=== PATIENT | female | born 2000 | race Caucasian/White ===

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

== ENCOUNTER 2024-04-10 05:28 | Observation (INO) ==
--- OUTSIDE RECORDS SUMMARY | 2024-04-10 05:35 | External Medical Summary | Summary of Care ---
Author Name Unknown Organization [facility] Address [address] [place] [address] Phone [phone] Care Team Providers Care Grazing Examiner Name Role Phone Cande Chavarria MD Primary Care Provider Reason for Visit * Reason Comments Post-Op Removal spinal cord stimulator Encounter Details Date Type Department Care Team (Late st Contact Info) Description 11/11/2023 1:30 PM EST [facility] [address] [place] [address] Estefania Steward, PASam [address] [place] [address] Complex regional pain syndrome type 1 of both lower extremities* Allergies Active Allergy Reactions Criticality Noted Date Comments Cefdinir Anaphylaxis High 02/03/2021 Latex 04/04/2021 Other reaction(s): red, skin irritation. documented as of this encounter (statuses as of 11/15/2023) Medications Medication Sig Dispensed Refills Start Date End Date Status Ibuprofen 200 MG Oral Capsule Take 3 Capsules by mouth 2 times a day as needed (pain). 0 Active diphenhydrAMINE HCl 25 MG Oral Capsule (Benadryl) Take 1 Capsule by mouth every 6 hours as needed. 0 Active Acetaminophen 500 MG Oral Tablet (Tylenol) Take 6 Tablets by mouth 2 times a day as needed (pain). 0 Active oxyCODONE HCl 5 MG Oral Tablet (Oxy IR) Take 1 Tablet by mouth every 4 hours as needed for Pain, Moderate. 45 Tablet 0 11/01/2023 Active Acetaminophen 325 MG Oral Capsule Take 325 mg by mouth every 4 hours as needed for Pain. 0 11/11/2023 Discontinued Naproxen Sodium 220 MG Oral Tablet (Aleve) Take 6 Tablets by mouth 2 times a day as needed for Pain. 0 11/11/2023 Discontinued Cyclobenzaprine HCl 10 MG Oral Tablet (Flexeril)Indicat ions:Chronic left-sided low back pain with left-sided sciatica Take 1 Tablet by mouth 2 times a day as needed for Muscle spasms. 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 documented as of this encounter (statuses as of 11/15/2023) Resolved Problems Problem Noted Date Diagnosed Date Resolved Date Uncontrolled pain 05/04/2021 12/15/2022 POTS (postural orthostatic t achycardia syndrome) 05/04/2021 07/01/2021 Severe malnutrition 02/18/2021 12/16/19 23 documented as of this encounter (statuses as of 11/15/2023) Immunizations Name Administration Dates Next Due HPV Vaccine, 4-Valent 2011 Hepatitis B, 0-19 yrs 2000 IPV - Polio Virus Vaccine (Inact) 2000 MMR - Measles/Mumps/Rubella Vaccine 2001 Meningococcal MCV4P Conjugate Vaccine (Menactra) 2001 Seasonal Influenza, PF, 6 M & above, IM , (FluLaval or Fluzone) 08/25/2021() Seasonal Influenza, Split, IIV3, With Preserve, Inj 04/06/2016 TDAP (age 10 and older)(Boostrix) 2007 Varicella Vaccine (Chicken Pox) 2013 documented as of this encounter Social History Tobacco Use Types Packs/Day Years Used Date Smoking Tobacco: Never Smokeless Tobacco: Never Alcohol Use Standard Drinks/Week Comments Yes 0 (1 standard drink = 0.6 oz pur e alcohol) rare Hunger Vital Sign Answer Date Recorded Within the past 12 months, y ou worried that your food would run out before you got the money to buy more. Never true 02/04/20 23 Within the past 12 months, t he food you bought just didn't last and you didn't have money to get more. Never true 02/03/2023 Sex and Gender Information Value Date Recorded Sex Assigned at Female 05/04/2021 11:30 PM EDT Gender Identity Female 05/04/2021 11:30 PM EDT Sexual Orientation Straight 05/04/2021 11 :30 PM EDT Job Start Date Occupation Industry Not on file Not on file Not on file documented as of this encounter Functional Status Functional Status Response Date of Assess ment Are you deaf or do you have serious difficulty h earing? No 05/04/2021 Are you blind or do you have serious difficulty seeing, even when wearing glasses? No 05/04/2021 Do you have serious difficul ty walking or climbing stairs? (5 years old or older) No 05/04/2021 Do you have difficulty dress ing or bathing? (5 years old or older) No 05/04/2021 Because of a physical, menta l, or emotional condition, do you have difficulty doing errands alone such as visiting a doctor s office or shopping? (15 years old or older) No 05/04/20 21 Cognitive Status Response Date of Assessm ent Because of a physical, menta l, or emotional condition, do you have serious difficulty concentrating, remembering, or making decisions? (5 years old or older) No 05/04/2021 documented as of this encounter Progress Notes * Estefania Steward PA-C - 11/15/2023 7:11 PM EDT 11-11-2023 HPI: 23 yo female s/p removal of her spinal cord stimulator. Overall she is doing well. She denies fever, chills, or drainage from her wound. She is doing well without the stimulator. She is here today for follow up. Exam: 23 yo female well developed, well nourished. Back and Spine: well healed incisions. Negative pain with palpation, negative erythema or drainage. Extremities: p.pulse +2 in the bilateral lower extremities. Full and painless ROM of the hips, knees, and ankles bilaterally. Neurologically: alert and oriented. Motor strength +5 in the bilateral lower extremities. Assessment: Chronic pain syndrome s/p removal spinal cord stimulator 10-15-23 Plan Activities as tolerated Follow up prn documented in this encounter Plan of Treatment Health Maintenance Due Date Last Done Comments Hepatitis B (2 of 3 - 3-dose series) 2000 2000 GARDASIL-HPV IMMUNIZATION SE MISTY (2 - 2-dose series) 04/17/2012 2011 Gonorrhea / Chlamydia Screen 2015 HIV Screening 2015 Depression Screening 11/15/2015 11/14/2014 Hepatitis C Screening 2018 DTaP,Tdap,and Td Vaccines (2 - Tdap) 2019 2007 Pap Smear 2021 COVID-19 Vaccine (1 - 2022-2 4 season) 2023 Influenza Vaccine (FLU shot) (#1) 2023 016 MENINGOCOCCAL (MENACTRA/MENVEO) Aged Out 2 No longer eligible based on patient's age to complete this topic Pneumococcal Vaccine: Pediat rics (0 to 5 Years) and At-Risk Patients (6 to 64 Years) Aged Out No longer eligi ble based on patient's age to complete this topic documented as of this encounter Medical Devices Implanted Type Area Development Specialist Device Identifier Shelf Expiration Date Model / Serial / Lot Achilles W/O Bone [id number] - [id number] - [id number] Implanted:Qt y: 1 on 02/13/2021 by Tomy Simms DO at [place] [facility] Tissue - Human Right: Shoulder [employer]LET[employer]ANS[employer] FND 05/27/2022 [id number] / [id number] / [id number] [facility] [id number] X5 - [id number] Implanted:Qt y: 1 on 02/07/2015 by Emmett Earl MD at [facility] Left: Toe [employer] [id number] / / Fibre Suture Burt With 1.3mm Tape (White/Blue) Implanted:Qt y: 3 on 02/13/2021 by Tomy Simms, DO at [place] [facility] Right: Shoulder [employer] 01/03/2025 AR-3602 / / [id number] Sut Burt Peek Crkscrw Ft - [id number] Implanted:Qt y: 1 on 02/13/2021 by Tomy Simms DO at [place] [facility] Right: Shoulder [employer] 08/05/2025 AR-[id number] F-45 / / [id number] Burt Sut Swvlck 4.61i83bf - [id number] Implanted:Qt y: 1 on 02/13/2021 by Tomy Simms DO at [place] [facility] Right: Shoulder [employer] 11/03/2024 AR-[id number] C-2 / / [id number] Burt Sut Swvlck 4.59h04cy - [id number] Implanted:Qt y: 1 on 02/13/2021 by Tomy Simms DO at [place] [facility] Right: Shoulder [employer] 05/06/2024 AR-[id number] C-2 / / [id number] documented as of this encounter Visit Diagnoses Diagnosis Complex regional pain syndrome type 1 of both lower extremities- Primary documented in this encounter Advance Directives Latest Code Status on File Code Status Date Activated Date Inactivated Comments Full Code 10/15/2023 1:43 PM 10/15/2023 8:27 PM This or jennifer reflects the patients wishes and were consensually agreed upon. Question Answer Comments Discussion of Advance Directives occurred with: Not Discussed due to patient's condition Code Status History Code Status Date Activated Date Inactivated Comments Full Code 10/15/2023 12:27 PM 10/15/2023 1:43 PM This o rder reflects the patients wishes and were consensually agreed upon. Question Answer Comments Discussion of Advance Directives occurred with: Patient Does the patient have a Living Will? No Does the patient have Health Care Power of Hand Folder? No Full Code 08/25/2021 11:39 AM 08/25/2021 7:45 PM Th is order reflects the patients wishes and were consensually agreed upon. Question Answer Comments Discussion of Advance Directives occurred with: Patient Does the patient have a Living Will? No Does the patient have Health Care Power of Hand Folder? No Full Code 05/04/2021 7:05 PM 05/06/2021 6:38 PM This order reflects the patients wishes and were consensually agreed upon. Full Code 02/13/2021 4:13 PM 02/18/2021 7:49 PM This order reflects the patients wishes and were consensually agreed upon. Question Answer Comments Discussion of Advance Directives occurred with: Not Discussed Care Teams Grazing Examiner Relationship Specialty Start Date End Date Cande Chavarria MD [address] [place] [id number] PCP - General Internal Medicine 07/10/21 documented as of this encounter
--- OUTSIDE RECORDS SUMMARY | 2024-04-10 05:35 | External Medical Summary | Summary of Care ---
Author Name Unknown Organization [facility] Address [address] [place] [address] Phone [phone] Care Team Providers Care Implementation Project Coordinator Name Role Phone Cande Chavarria MD Primary Care Provider Reason for Visit * Reason Comments Migraine Headache Encounter Details Date Type Department Care Team (Late st Contact Info) Description 04/01/2024 8:40 AM EDT Telemedicine [address] [address] Martin Matias, DO [address] [place] [address] Spasm of left trapezius muscle*; Cervical paraspinal muscle spasm; Migraine without aura and without status migrainosus, not intractable; DAY (generalized anxiety disorder); History of bipolar disorder; Thoracic spondylosis Allergies Active Allergy Reactions Criticality Noted Date Comments Cefdinir Anaphylaxis High 02/03/2021 Latex 04/04/2021 Other reaction(s): red, skin irritation. documented as of this encounter (statuses as of 04/01/2024) Medications Medication Sig Dispensed Refills Start Date End Date Status Ibuprofen 200 MG Oral Capsule Take 3 Capsules by mouth 2 times a day as needed (pain). Active diphenhydrAMINE HCl 25 MG Oral Capsule (Benadryl) Take 1 Capsule by mouth every 6 hours as needed. Active Acetaminophen 500 MG Oral Tablet (Tylenol) Take 6 Tablets by mouth 2 times a day as needed (pain). Active Cyclobenzaprine HCl 10 MG Oral Tablet (Flexeril)Indicat ions:Spasm of left trapezius muscle Take 1 Tablet by mouth 2 times a day as needed for Muscle spasms. 30 Tablet 04/01/2024 Active oxyCODONE HCl 5 MG Oral Tablet (Oxy IR) Take 1 Tablet by mouth every 4 hours as needed for Pain, Moderate. 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 documented as of this encounter (statuses as of 04/01/2024) Resolved Problems Problem Noted Date Diagnosed Date Resolved Date Bipolar 1 disorder 01/14/2022 Uncontrolled pain 05/04/2021 12/15/2022 POTS (postural orthostatic t achycardia syndrome) 05/04/2021 07/01/2021 Severe malnutrition 02/18/2021 12/16/19 23 documented as of this encounter (statuses as of 04/01/2024) Immunizations Name Administration Dates Next Due HPV [...] as of this encounter Progress Notes * Martin Matias, DO - 04/01/2024 8:54 AM EDT SUBJECTIVE: Chief Complaint Patient presents with Migraine Headache HPI: Manda Pepper is a 23 year old female who presents to the clinic for evaluation of muscle spasms, migraine and other comorbidities. Patient location: HOME. I was in a hospital or clinic location. After connecting through televideo,patient was verified with two unique identifiers. 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 Methods to assure confidentiality were taken. Patient acknowledged consent and understanding of pr ivacy and security of the Telemedicine visit. The patient agreed to participate. She is employed with the [employer]. She is physically active with work. Three days ago, she developed a left paracervical to trapezius muscle spasms. No known injury. It is causing left sided migraine headaches. The migraine headaches are typically associated with vision changes. No radiating pain down the left arm. No motor or sensory deficits in the extremities. She received Toradol IM 30 mg this morning at work. She took ibuprofen and Tylenol. These are providing mild benefit. She did well with a muscle relaxer in the past. No chance of . No worsening thoracic back pain. Some days are better than others. Ibuprofen as needed is helping. No changes in mood. No worsening anxiety or bipolar disorder symptoms. She is not following with behavioral health or taking a medication for symptoms. 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) CRPS (complex regional pain syndrome type I) Shoulder dislocation Spinal cord stimulator dysfunction ([facility]) DAY (generalized anxiety disorder) Horseshoe kidney Thoracic spondylosis History of bipolar disorder Current Outpatient Medications Medication Sig Dispense Refill Cyclobenzaprine HCl 10 MG Oral Tablet (Flexeril) Take 1 Tablet by mouth 2 times a day as needed forMuscle spasms. 30 Tablet 0 Ibuprofen 200 MG Oral Capsule Take 3 Capsules by mouth 2 times a day as needed (pain). diphenhydrAMINE HCl 25 MG Oral Capsule (Benadryl) Take 1 Capsule by mouth every 6 hours as needed. Acetaminophen 500 MG Oral Tablet (Tylenol) Take 6 Tablets by mouth 2 times a day as needed (pain). No current facility-administered medications for this visit. Review of patient's allergies indicates: Allergen Reactions Cefdinir Anaphylaxis Latex Other reaction(s): red, skin irritation. Review of Systems: General: No fevers or malaise. Skin: No rash. HEENT: Vision changes with migraines. Neck: No lymph node enlargement. Cardiovascular: No chest pressure, chest pain or shortness of breath on exertion. Gastrointestinal: No abdominal pain. Musculoskeletal: Per HPI. Neurologic: Per HPI. OBJECTIVE: Telemedicine visit. PHYSICAL EXAM: General: Alert, no distress. Eyes: No conjunctivitis, drainage or excessive tearing. Nose: No epistaxis or rhinorrhea. Lungs: No audible cough or wheezing. Abdomen: Soft, non tender and active bowel sounds. Musculoskeletal: She is able to located the muscle spasms in the left trapezius to paracervical musculature. Neuro: Alert, oriented, fluent speech. No gross motor deficits in the left upper extremity. Psych: Normal mood and affect. ASSESSMENT/PLAN: Spasm of left trapezius muscle (Primary) Cervical paraspinal muscle spasm Plan: She is having symptoms. I reviewed her renal function and CBC. I sent as needed Flexeril to her pharmacy. We discussed the side effects. May use ibuprofen 600 mg every 12 hours as needed for pain. May take Tylenol 500 mg 1-2 tablets every 8 hours as needed for pain. Heating pad, topical lidocaine or Thermacare patches as needed for additional symptom relief. Take ibuprofen with food. Stay well hydrated during the day. Migraine without aura and without status migrainosus, not intractable Plan: She is having symptoms. This may be triggered by the left cervical and trapezius muscle spasms. Ibuprofen, Tylenol and Flexeril as above. - Cyclobenzaprine HCl 10 MG Oral Tablet (Flexeril); Take 1 Tablet by mouth 2 times a day as needed for Muscle spasms. DAY (generalized anxiety disorder) History of bipolar disorder Plan: No worsening symptoms. She would like to monitor clinically. Call if needed. Thoracic spondylosis Plan: No worsening symptoms. I reviewed her thoracic spine x-ray. May use as needed ibuprofen and Tylenol. Home PT exercises. Health maintenance Vaccinations, cervical cancer screening, hep C, HIV and Chlamydia screenings: She would like to discuss with her PCP. Follow up with PCP in 3 months. 20 min visit. Seen earlier if needed. Martin Matias DO 04/01/2024 9:00 AM documented in this encounter Nursing Notes * Lila Leger LPN - 04/01/2024 8:40 AM EDT Pt c/o on going migraines and neck pain and muscle spasms documented in this encounter Plan of Treatment Health Maintenance Due Date Last Done Comments Hepatitis B Vaccine (2 of 3 - 3-dose series) 2000 2000 HPV (Gardasil) Vaccine (2 - 2-dose series) 04/17/2012 2011 Gonorrhea / Chlamydia Screen 2015 HIV Screening 2015 Hepatitis C Screening 2018 DTaP,Tdap,and Td Vaccines (2 - Tdap) 2019 2007 Pap Smear 2021 COVID-19 Vaccine (1 - 2022-2 4 season) 2023 Influenza Vaccine (FLU shot) (#1) 2024 016 MENINGOCOCCAL (MENACTRA/MENVEO) Aged Out 2 No longer eligible based on patient's age to complete this topic Pneumococcal Vaccine: Pediat rics (0 to 5 Years) and At-Risk Patients (6 to 64 Years) Aged Out No longer eligi ble based on patient's age to complete this topic documented as of this encounter Medical Devices Implanted Type Area Surface Supervisor Device Identifier Shelf Expiration Date Model / Serial / Lot Achilles W/O Bone [id number] - [id number] - [id number] Implanted:Qt y: 1 on 02/13/2021 [place] T[place] Sim[place] [facility] [place] Human Right: Shoulder MUSCULOSKELETAL TRANSPLANT FND 05/27/2022 [id number] / [id number] / [id number] [place] Crkscrw Ar-1927bf X5 - [id number] Implanted:Qt y: 1 on 02/07/2015 by Emmett Earl MD at OR [facility] Left: Toe [employer] AR-1927BF / / Fibre Suture [place] With 1.3mm Tape (White/Blue) Implanted:Qt y: 3 on 02/13/2021 by Tomy Simms [place] [facility] [place]: Shoulder [employer] 01/03/2025 AR-3602 / / [id number] Sut [place] Peek Crkscrw Ft - [id number] Implanted:Qt y: 1 on 02/13/2021 by Tomy Simms [place] [facility] [place]: Shoulder [employer] 08/05/2025 AR-1927PS F-45 / / [id number] [place] Sut Swvlck 4.52f76bx - [id number] Implanted:Qt y: 1 on 02/13/2021 by Tomy Simms, [place] [facility] [place]: Shoulder [employer] 11/03/2024 AR-2324BC C-2 / / [id number] [place] Sut Swvlck 4.99g65fr - [id number] Implanted:Qt y: 1 on 02/13/2021 by Tomy Simms, DO [place] [facility] [place]: Shoulder [employer] 05/06/2024 AR-2324BC C-2 / / [id number] documented as of this encounter Visit Diagnoses Diagnosis Spasm of left trapezius muscle- Primary Cervical paraspinal muscle spasm Spasm of muscle Migraine without aura and without status migrainosus, not intractable Migraine without aura, without mention of intractable migraine without mention of status migrainosus DAY (generalized anxiety disorder) Generalized anxiety disorder History of bipolar disorder Personal history of affective disorder Thoracic spondylosis Thoracic spondylosis without myelopathy documented in this encounter Advance Directives * Full Code (Latest Code Status on File) Date Activated Date Inactivated Comments 10/15/2023 1:43 PM 10/15/2023 8:27 PM This order ref lects the patients wishes and were consensually agreed upon. Question Answer Comments Discussion of Advance Direct dickson occurred with: Not Discussed due to patient's condition * Full Code Date Activated Date Inactivated Comments 10/15/2023 12:27 PM 10/15/2023 1:43 PM This order re flects the patients wishes and were consensually agreed upon. Question Answer Comments Discussion of Advance Directives occurred with: Patient Does the patient have a Living Will? No Does the patient have Health Care Power of Attor roxana? No * Full Code Date Activated Date Inactivated Comments 08/25/2021 11:39 AM 08/25/2021 7:45 PM This orde r reflects the patients wishes and were consensually agreed upon. Question Answer Comments Discussion of Advance Directives occurred with: Patient Does the patient have a Living Will? No Does the patient have Health Care Power of Attor roxana? No * Full Code Date Activated Date Inactivated Comments 05/04/2021 7:05 PM 05/06/2021 6:38 PM This order r eflects the patients wishes and were consensually agreed upon. * Full Code Date Activated Date Inactivated Comments 02/13/2021 4:13 PM 02/18/2021 7:49 PM This order r eflects the patients wishes and were consensually agreed upon. Question Answer Comments Discussion of Advance Directives occurred with: Not Discussed Care Teams Implementation Project Coordinator Relationship Specialty Start Date End Date Cande Chavarria MD [address] [place] [address] PCP - General Internal Medicine 07/10/21 documented as of this encounter
--- OUTSIDE RECORDS SUMMARY | 2024-04-10 05:35 | External Medical Summary | Summary of Care ---
Author Name Unknown Organization [facility] Address [address] [place] [address] Phone [phone] Care Team Providers Care Fried Cake Maker Name Role Phone Cande Chavarria MD Primary Care Provider Reason for Referral * Evaluate & Treat - Unlimited Visits (Within 30 days (routine)) - Pending Review Specialty Diagnoses / Procedures Referred By Maximino lowe Referred To Contact Neuro/Ortho Surgery - Spine. / Neurological Surgery Diagnoses Complex regional pain syndrome type 1 of both lower extremities Malfunction of spinal cord stimulator, subsequent encounter Cande Chavarria MD [address] [place] [address] Referral ID Status Reason Start Date Expiration Date Visits Requested Visits Authorized [id number] Pending Review Specialty Services Required 09/14/2023 09/14/[phone] Question Answer Referral Priority Within 30 days (routine) Where should this appointment be scheduled? [facility] spine region: Back - Thoracic/Lumbar Do you have any recent complete loss of bladder or bowel function? No Comments Implanted stimulator, suspect malfunction. Appt already scheduled Reason for Visit * Reason Onset Date Comments Referral 09/14/2023 Encounter Details Date Type Department Care Team (Late st Contact Info) Description 09/14/2023 Telephone Family Practice [facility] [address] [place] [address] Cande Chavarria MD [address] [place] [address] Referral Allergies Active Allergy Reactions Criticality Noted Date Comments Cefdinir Anaphylaxis High 02/03/2021 Latex 04/04/2021 Other reaction(s): red, skin irritation. documented as of this encounter (statuses as of 12/14/2023) Medications Medication Sig Dispensed Refills Start Date [...] a day as needed (pain). 0 Active Acetaminophen 325 MG Oral Capsule Take 325 mg by mouth every 4 hours as needed for Pain. 0 11/11/2023 Discontinued Naproxen Sodium 220 MG Oral Tablet (Aleve) Take 6 Tablets by mouth 2 times a day as needed for Pain. 0 11/11/2023 Discontinued documented as of this encounter (statuses as of 12/14/2023) Active Problems Problem Noted Date Diagnosed Date [...] as of this encounter (statuses as of 12/14/2023) Resolved Problems Problem Noted Date Diagnosed Date Resolved Date Uncontrolled pain 05/04/2021 12/15/2022 POTS (postural orthostatic t achycardia syndrome) 05/04/2021 07/01/2021 Severe malnutrition 02/18/2021 12/16/19 documented as of this encounter (statuses as of 12/14/2023) Immunizations Name Administration Dates Next Due HPV [...] No 05/04/2021 documented as of this encounter Miscellaneous Notes * Telephone Encounter - Maritza Martin LPN - 09/14/2023 11:01 AM EST Referral pend below f you agree * Telephone Encounter - Malini Rios OSA - 09/14/2023 8:33 AM EST Has the patient been seen for this problem? (Y/N)?: y If No, an appt needs to be scheduled before a referral will be placed (exception: proceed with referral request if referral request is for a yearly routine appointment with speciality) Patient Name: Manda Pepper Patient Primary care provider: Cande Chavarria MD Does this need to be an insurance referral (Y/N)?: y If Yes, does the insurance referral need to be placed into the [employer] system? N/A Name of preferred specialist: SARAH Payne Type of specialist: Orthopedics Location of specialist: [place] [facility] Phone #: [phone] Specialist's Fax #: [phone] Reason for visit: Thoracic back pain And Poss stem removal Date of visit: n/a documented in this encounter Plan of Treatment Scheduled Referrals Name Type Priority Associated Diagnoses Orde r Schedule SPINE SURGERY REFERRAL OP Referral Within 30 days (routine) Complex regional pain syndrome type 1 of both lower extremities Malfunction of spinal cord stimulator, subsequent encounter Ordered: 09/14/2023 Health Maintenance Due Date Last Done Comments Hepatitis B (2 of 3 - 3-dose series) 2000 2000 GARDASIL-HPV IMMUNIZATION SE MISTY (2 - 2-dose series) 04/17/2012 2011 Gonorrhea / Chlamydia Screen 2015 HIV Screening 2015 Depression Screening 11/15/2015 11/14/2014 Hepatitis C Screening 2018 DTaP,Tdap,and Td Vaccines (2 - Tdap) 2019 2007 Pap Smear 2021 COVID-19 Vaccine (2022-2 4 season) 2023 Influenza Vaccine (FLU shot) (Season Ended) 2024 04/06/2016 MENINGOCOCCAL (MENACTRA/MENVEO) Aged Out 2 No longer eligible based on patient's age to complete this topic Pneumococcal Vaccine: Pediat rics (0 to 5 Years) and At-Risk Patients (6 to 64 Years) Aged Out No longer eligi ble based on patient's age to complete this topic documented as of this encounter Medical Devices Implanted Type Area Ornamental Ironworker Helper Device Identifier Shelf Expiration Date Model / Serial / Lot Achilles W/O Bone [id number] - [id number] - [id number] Implanted:Qt y: 1 on 02/13/2021 by Tomy Simms DO at [place] [facility] [place] Tissue - Human Right: Shoulder MUSCULOSKELETAL TRANSPLANT FND 05/27/2022 [id number] / [id number] / [id number] [place] [address] Crkscrw Ar-1927bf X5 - [id number] Implanted:Qt y: 1 on 02/07/2015 by Emmett Earl MD at OR [facility] Left: Toe [employer] AR-1927BF / / Fibre Suture [place] With 1.3mm Tape (White/Blue) Implanted:Qt y: 3 on 02/13/2021 by Tomy Simms DO at [place] [facility] [place] Right: Shoulder [employer] 01/03/2025 AR-3602 / / [id number] Sut [place] Peek Crkscrw Ft - [id number] Implanted:Qt y: 1 on 02/13/2021 by Tomy Simms DO at [place] [facility] [place] Right: Shoulder [employer] 08/05/2025 AR-1927PS F-45 / / [id number] [place] Sut Swvlck 4.45d10zm - [id number] Implanted:Qt y: 1 on 02/13/2021 by Tomy Simms DO at OR [facility] [place] Right: Shoulder [employer] 11/03/2024 AR-2324BC C-2 / / [id number] [place] Sut Swvlck 4.93v16ur - [id number] Implanted:Qt y: 1 on 02/13/2021 by Tomy Simms DO at OR [facility] [place] Right: Shoulder [employer] 05/06/2024 AR-2324BC -2 / / [id number] Explanted Type Area Ornamental Ironworker Helper Device Identifier Shelf Expiration Date Model / Serial / Lot Implantable Pulse Generator Implanted:Qty: 1 on 08/25/2021 by Pritesh Correa MD at OR [facility] Explanted:Qty: 1 on 10/15/2023 at [place] [facility] [place] N/A: Back Roovyn : [employer]V [employer] 08/05/2023 VT-1232 / / [id number] Description:Implantable Puls e Generator documented as of this encounter Visit Diagnoses Diagnosis Complex regional pain syndrome type 1 of both lower extremities- Primary Malfunction of spinal cord stimulator, subsequent encounter documented in this encounter Advance Directives Latest [...] the patient have Health Care Power of Pharmacoepidemiologist? No Full Code 08/25/2021 11:39 AM 08/25/2021 7:45 PM Th is order reflects the patients wishes and were consensually agreed upon. Question Answer Comments Discussion of Advance Directives occurred with: Patient Does the patient have a Living Will? No Does the patient have Health Care Power of Pharmacoepidemiologist? No Full Code 05/04/2021 7:05 PM 05/06/2021 6:38 PM This order reflects the patients wishes and were consensually agreed upon. Full Code 02/13/2021 4:13 PM 02/18/2021 7:49 PM This order reflects the patients wishes and were consensually agreed upon. Question Answer Comments Discussion of Advance Directives occurred with: Not Discussed Care Teams Fried Cake Maker Relationship Specialty Start Date End Date Cande Chavarria MD [address] [place] [address] PCP - General Internal Medicine 07/10/21 documented as of this encounter
--- OUTSIDE RECORDS SUMMARY | 2024-04-10 05:35 | External Medical Summary | Summary of Care ---
Author Name Unknown Organization [facility] Address [address] [place] [address] Phone [phone] Care Team Providers Care Leather Belt Maker Name Role Phone Cande Chavarria MD Primary Care Provider Encounter Details Date Type Department Care Team (Late st Contact Info) Description 11/09/2023 Orders Only Outcomes Research Department [address], [place] [id number] Kaylin Tipton CHRA MyCode Research Other*[id number] Allergies Active Allergy Reactions Criticality Noted Date Comments Cefdinir Anaphylaxis High 02/03/2021 Latex 04/04/2021 Other reaction(s): red, skin irritation. documented as of this encounter (statuses as of 11/09/2023) Medications Medication Sig Dispensed Refills Start Date End Date Status Acetaminophen 325 MG Oral Capsule Take 325 mg by mouth every 4 hours as needed for Pain. 0 Active Ibuprofen 200 MG Oral Capsule Take 3 Capsules by mouth 2 times a day as needed (pain). 0 Active diphenhydrAMINE HCl 25 MG Oral Capsule (Benadryl) Take 1 Capsule by mouth every 6 hours as needed. 0 Active Naproxen Sodium 220 MG Oral Tablet (Aleve) Take 6 Tablets by mouth 2 times a day as needed for Pain. 0 Active Acetaminophen 500 MG Oral Tablet (Tylenol) Take 6 Tablets by mouth 2 times a day as needed (pain). 0 Active Cyclobenzaprine HCl 10 MG Oral Tablet (Flexeril)Indication s:Chronic left-sided low back pain with left-sided sciatica Take 1 Tablet by mouth 2 times a day as needed for Muscle spasms. 30 Tablet 0 10/15/2023 Active oxyCODONE HCl 5 MG Oral Tablet (Oxy IR) Take 1 Tablet by mouth every 4 hours as needed for Pain, Moderate. 45 Tablet 0 11/01/2023 Active documented as of this encounter (statuses as of 11/09/2023) Active Problems Problem Noted Date Diagnosed Date [...] as of this encounter (statuses as of 11/09/2023) Resolved Problems Problem Noted Date Diagnosed Date Resolved Date Uncontrolled pain 05/04/2021 12/15/2022 POTS (postural orthostatic t achycardia syndrome) 05/04/2021 07/01/2021 Severe malnutrition 02/18/2021 12/16/19 documented as of this encounter (statuses as of 11/09/2023) Immunizations Name Administration Dates Next Due HPV [...] No 05/04/2021 documented as of this encounter Plan of Treatment Upcoming Encounters Date Type Department Care Team (Late st Contact Info) Description 11/11/2023 1:30 PM EST [facility] [address] [place] [id number] Estefania Steward PA-C [address] [place] [address] Scheduled Orders Name Type Priority Associated Diagnoses Orde r Schedule MYCODE SUBSEQUENT ADULT Lab Routine MyCode Research Other*[id number] Every 6 Months for 2 Occurrences starting 11/09/2023 until 11/28/2024 Health Maintenance Due Date Last Done Comments [...] this encounter Medical Devices Implanted Type Area Zinc Plate Grainer Device Identifier Shelf Expiration Date Model / Serial / Lot Achilles W/O Bone [id number] - [id number] - [id number] Implanted:Qt y: 1 on 02/13/2021 by Tomy Simms DO [place] [facility] [place] - Human Right: Shoulder MUSCULOSKELETAL TRANSPLANT FND 05/27/2022 [id number] / [id number] / [id number] Crks[address] Ar-1927bf X5 - [id number] Implanted:Qt y: 1 on 02/07/2015 by Emmett Earl MD at [facility] Left: Toe [employer] AR-1927BF / / Fibre Suture Widen With 1.3mm Tape (White/Blue) Implanted:Qt y: 3 on 02/13/2021 by Tomy Simms DO [place] [facility] [place] Right: Shoulder [employer] 01/03/2025 AR-3602 / / [id number] Sut [place] Crkscrw Ft - [id number] Implanted:Qt y: 1 on 02/13/2021 by Tomy Simms DO at [place] [facility] [place] Right: Shoulder [employer] 08/05/2025 AR-1927PS F-45 / / [id number] Widen Sut Swvlck 4.74o46qf - [id number] Implanted:Qt y: 1 on 02/13/2021 by Tomy Simms, at [place] [facility] [place] Right: Shoulder [employer] 11/03/2024 AR-2324BC C-2 / / [id number] Widen Sut Swvlck 4.78u31od - [id number] Implanted:Qt y: 1 on 02/13/2021 by Tomy Simms DO at [place] [facility] [place] Right: Shoulder [employer] 05/06/2024 AR-2324BC C-2 / / [id number] documented as of this encounter Visit Diagnoses Diagnosis MyCode Research Other*[id number] documented in this encounter Advance Directives Latest [...] the patient have Health Care Power of Caddy? No Full Code 08/25/2021 11:39 AM 08/25/2021 7:45 PM Th is order reflects the patients wishes and were consensually agreed upon. Question Answer Comments Discussion of Advance Directives occurred with: Patient Does the patient have a Living Will? No Does the patient have Health Care Power of Caddy? No Full Code 05/04/2021 7:05 PM 05/06/2021 6:38 PM This order reflects the patients wishes and were consensually agreed upon. Full Code 02/13/2021 4:13 PM 02/18/2021 7:49 PM This order reflects the patients wishes and were consensually agreed upon. Question Answer Comments Discussion of Advance Directives occurred with: Not Discussed Care Teams Leather Belt Maker Relationship Specialty Start Date End Date Cande Chavarria MD [address] [id number] PCP - General Internal Medicine 07/10/21 documented as of this encounter
--- OUTSIDE RECORDS SUMMARY | 2024-04-10 05:35 | External Medical Summary | Summary of Care ---
Author Name Unknown Organization [facility] Address [address] [place] [address] Phone [phone] Care Team Providers Care Basting Puller Name Role Phone Cande Chavarria MD Primary Care Provider Reason for Visit * Reason Onset Date Comments Medication Problem 10/15/2023 Encounter Details Date Type Department Care Team (Late st Contact Info) Description 10/15/2023 [facility] [address] [place] [address] Pritesh Correa MD [address] [place] [address] Medication Problem Allergies Active Allergy Reactions Criticality Noted Date Comments Cefdinir Anaphylaxis High 02/03/2021 Latex 04/04/2021 Other reaction(s): red, skin irritation. documented as of this encounter (statuses as of 01/14/2024) Medications Medication Sig Dispensed Refills Start Date [...] 4 hours as needed for Pain. 0 4 Discontinued Naproxen Sodium 220 MG Oral Tablet (Aleve) Take 6 Tablets by mouth 2 times a day as needed for Pain. 0 4 Discontinued Cyclobenzaprine HCl 10 MG Oral Tablet (Flexeril)Indica tions:Chronic left-sided low back pain with left-sided sciatica Take 1 Tablet by mouth 2 times a day as needed for Muscle spasms. 30 Tablet 0 10/15/2023 4 Discontinued oxyCODONE HCl 5 MG Oral Tablet (Oxy IR) Take 1 Tablet by mouth every 4 hours as needed for Pain, Moderate. 45 Tablet 0 10/15/2023 4 Discontinued(Refi ll) documented as of this encounter (statuses as of 01/14/2024) Active Problems Problem Noted Date Diagnosed Date [...] as of this encounter (statuses as of 01/14/2024) Resolved Problems Problem Noted Date Diagnosed Date Resolved Date Uncontrolled pain 05/04/2021 12/15/2022 POTS (postural orthostatic t achycardia syndrome) 05/04/2021 07/01/2021 Severe malnutrition 02/18/2021 12/16/19 23 documented as of this encounter (statuses as of 01/14/2024) Immunizations Name Administration Dates Next Due HPV [...] encounter Miscellaneous Notes * Telephone Encounter - Libra Vargas PA-C - 10/15/2023 5:34 PM EST Spoke to pharmacy taken care of * Telephone Encounter - Bettye Myles OSA - 10/15/2023 4:54 PM EST Patient called in stating that Joanne Espinosa wasn't going to fill the Oxy script because it required a prior auth. Spoke with Libra and she was going to call the pharmacy to advise the patient can pay miguel untilprior auth submitted. Let patient know. She was thankful. documented in this encounter Plan of Treatment [...] this encounter Medical Devices Implanted Type Area Consulting Database Administrator Device Identifier Shelf Expiration Date Model / Serial / Lot Achilles W/O Bone 875513 - [id number] - [id number] Implanted:Qt y: 1 on 02/13/2021 by Tomy Smims DO at [place] [facility] [place] Tissue - Human Right: Shoulder MUSCULOSKELETAL TRANSPLANT FND 05/27/2022 [id number] / [id number] / [id number]ks[address] Ar-1927bf X5 - [id number] Implanted:Qt y: 1 on 02/07/2015 by Emmett Earl MD at [facility] Left: Toe [employer] AR-1927BF / / Fibre Suture [place] With 1.3mm Tape (White/Blue) Implanted:Qt y: 3 on 02/13/2021 by Tomy Simms DO at [place] [facility] [place] Right: Shoulder [employer] 01/03/2025 AR-3602 / / [id number] Sut [place] Peek Crkscrw Ft - [id number] Implanted:Qt y: 1 on 02/13/2021 by Tomy Simms DO at [place] [facility] [place] Right: Shoulder [employer] 08/05/2025 AR-1927PS F-45 / / [id number] [place] Sut Swvlck 4.82c99bl - [id number] Implanted:Qt y: 1 on 02/13/2021 by Tomy Simms DO at [place] [facility] [place] Right: Shoulder [employer] 11/03/2024 AR-2324BC C-2 / / [id number] [place] Sut Swvlck 4.48r04zd - [id number] Implanted:Qt y: 1 on 02/13/2021 by Tomy Simms DO at [place] [facility] [place] Right: Shoulder [employer] 05/06/2024 AR-2324BC C-2 / / [id number] Explanted Type Area Consulting Database Administrator Device Identifier Shelf Expiration Date Model / Serial / Lot Implantable Pulse Generator Implanted:Qty: 1 on 08/25/2021 by Pritesh Correa MD at [facility] Explanted:Qty: 1 on 10/15/2023 at [place] [facility] [place] N/A: Back [employer] : ADV BIONIC 08/05/2023 [facility] [id number] / / [id number] Description:Implantable Puls e Generator documented as of this encounter Advance Directives Latest Code Status [...] the patient have Health Care Power of Manager Desktop? No Full Code 08/25/2021 11:39 AM 08/25/2021 7:45 PM Th is order reflects the patients wishes and were consensually agreed upon. Question Answer Comments Discussion of Advance Directives occurred with: Patient Does the patient have a Living Will? No Does the patient have Health Care Power of Manager Desktop? No Full Code 05/04/2021 7:05 PM 05/06/2021 6:38 PM This order reflects the patients wishes and were consensually agreed upon. Full Code 02/13/2021 4:13 PM 02/18/2021 7:49 PM This order reflects the patients wishes and were consensually agreed upon. Question Answer Comments Discussion of Advance Directives occurred with: Not Discussed Care Teams Basting Puller Relationship Specialty Start Date End Date Cande Chavarria MD [address] [place] [id number] PCP - General Internal Medicine 07/10/21 documented as of this encounter
[2024-04-10] MEDS: AMOXICILLIN/CLAVULANATE 875 MG TAB PO ONE (07:33)
--- NOTE | 2024-04-10 07:43 | Emergency Department Note ---
Impression & Plan Accidental acetaminophen overdose, Dental abscess ED Provider Note NAME: ELIDA FUNES AGE: 23 SEX: F : 2000 ARRIVES VIA: Walk-In INFORMANT: Patient, ED PROVIDER(S): Sheldon Matias MD CHIEF COMPLAINT: Tooth infection HPI: This is a 23-year-old female senting for tooth infection. Patient notes that she has had chronic issues with her teeth and has multiple caries. She notes that her right maxillary molar is significantly painful for last 2 to 3 days. She notes he has been taking Tylenol and Advil for the pain. She notes low-grade fevers. No nausea or vomiting. No difficulty swallowing ROS: See above HPI for pertinent positives & negatives. A total of 10 systems reviewed and were otherwise negative. PHYSICAL EXAMINATION: General: resting comfortably in no acute distress Head: Normocephalic and atraumatic Eyes: Normal inspection, extraocular muscles intact Ear, nose, throat: Normal external exam, poor dentition with multiple caries, right upper gumline shows mild fluctuance and pain Neck: Normal range of motion Respiratory: lungs clear to auscultation bilaterally Cardiovascular: Regular rate/rhythm, no murmur GI: soft, nontender, no guarding or rebound Extremities: nontender, moves all extremities Neuro: The patient awake and alert, appropriately conversive, no focal deficits, symmetric faces Skin: Warm, dry, and intact MEDICAL DECISION MAKING: This is a 23-year-old female presenting for tooth infection. Patient does have swelling to the upper gumline/hard palate. Discussed care with Dr. Espinosa who recommends incision and drainage here. -Patient also tells me that she is taken 500 mg of Tylenol, 4 pills every 6 hours for the past 3 days. This equals about 8 g of Tylenol per day well over the recommended dose and into toxic range. Did recommend she be admitted for this alone however she declines. Patient has been started on NAC at this time however. -Dr. Espinosa at bedside who states based on the hard palate swelling, would recommend CT and OR later today. Will order CT imaging. At this time patient is more amenable to inpatient admission. She will stay for this procedure as well as Tylenol overdose. -Discussed care with hospitalist service, Hortensia, for admission for her Tylenol overdose and dental infection. Differential diagnosis: Dental abscess, Tylenol overdose, dental caries, Braeden's angina ER treatment provided: See below Diagnostics interpreted by me: ECG: None Cardiac Monitoring: An order was placed for continuous cardiac monitoring. The monitor shows a rate of 92 with sinus rhythm. Laboratory studies: As stated above and show below. Imaging studies: See below. 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 POTS (postural orthostatic tachycardia syndrome) Surgical History (Updated 04/10/24 @ 11:21 by Karla Alex PA-C) Status post total shoulder arthroplasty S/P insertion of spinal cord stimulator subsequently removed Status post bone graft Family History (Updated 04/10/24 @ 11:22 by Karla Alex PA-C) Other Bipolar disorder Colorectal cancer Social History Smoking Status: Current every day smoker Tobacco Type: E-cigarettes / Vaping Second Hand Exposure: No; Do You Dip or Chew Tobacco: No; Hx Alcohol Use: Yes Alcohol type: wine Hx Substance Use: No Preferred Language: Divehi Field Recorder Required: No Beliefs That Will Affect Care: None Current Living Situation: Family Feels Safe at Home: Yes Assistive Devices: None Allergies Allergies Allergy/AdvReac Type Severity Reaction Status Date / Time tramadol Allergy Intermediate Hives Verified 11/04/23 00:32 latex Allergy Mild IF ON SKIN Verified 11/04/23 00:32 TOO LONG--ITCHY RASH cefdinir Allergy Unknown Tachycardia Verified 11/04/23 00:32 and Rash Home Meds Home Medications Medication Instructions Recorded Confirmed ibuprofen 200 mg tablet 600 - 800 mg PO Q6H PRN Fever Or 03/03/20 04/10/24 Pain acetaminophen 500 mg tablet 1,000 mg PO Q6H PRN Pain 11/04/23 04/10/24 (Tylenol Extra Strength) diphenhydramine HCl 25 mg capsule 25 mg PO DIRECTED PRN SLEEP/ 11/04/23 04/10/24 (Benadryl) NEEDED cyclobenzaprine 10 mg tablet 10 mg PO BID PRN Muscle Spasm 04/10/24 04/10/24 Results & Data (ED) Vital Signs Vital Signs - 24 hr 04/10/24 05:35 04/10/24 06:29 04/10/24 10:03 Temperature 36.8 C Temperature Source Temporal Artery Scan Pulse Rate 108 H Pulse Rate [Apical] 92 H Respiratory Rate 18 20 Respiratory Effort / Characteristics Non-Labored Spontaneous Non-Labored Respiratory Depth Normal Normal Blood Pressure 128/86 Blood Pressure [Right Arm] 122/83 Blood Pressure Mean 100 Blood Pressure Mean [Right Arm] 96 Pulse Oximetry 100 100 Oxygen Delivery Method Room Air Room Air Sepsis Recent Fever Within 48 Hours No Sepsis New/Unexplained Change in Mental Status No Sepsis Action Taken by Nursing No Action Required Laboratory Data 04/10/24 07:48 04/10/24 09:14 Lab Results 04/10/24 04/10/24 Range/Units 07:48 09:14 WBC 11.07 H (4.8-10.8) K/ul RBC 4.92 (4.20-5.40) M/uL Hgb 14.8 (12.0-16.0) g/dl Hct 43.7 (37.0-47.0) % MCV 88.8 (80.0-100.0) fL MCH 30.1 (25.0-34.0) pg MCHC 33.9 (32.0-36.0) g/dL RDW Std Deviation 43.8 (36.4-46.3) fL RDW Coeff of Klaudia 13.2 (11.5-14.5) % Plt Count 416 H (130-400) K/uL MPV 10.6 (9.4-12.4) fL Immature Gran % (Auto) 0.3 % Neut % (Auto) 59.5 % Lymph % (Auto) 30.0 % Evans % (Auto) 6.9 % Eos % (Auto) 2.6 % Baso % (Auto) 0.7 % Neut # (Auto) 6.59 H (1.40-6.50) K/uL Lymph # (Auto) 3.32 (1.20-3.40) K/uL Evans # (Auto) 0.76 H (0.11-0.59) K/uL Eos # (Auto) 0.29 (0.00-0.50) K/uL Baso # (Auto) 0.08 (0.00-0.20) K/uL Immature Gran # (Auto) 0.03 (0.01-0.20) K/uL Sodium TNP 138 Potassium TNP 3.8 Chloride 105 (98-107) mmol/L Carbon Dioxide 26 (21-32) mmol/L Anion Gap TNP BUN 14 (6-23) mg/dl Creatinine 0.55 L (0.6-1.2) mg/dl Est Cr Clr Drug Dosing 136.6 ml/min Est GFR ( Amer) > 150.0 ml/min Est GFR (Non-Af Amer) 132.2 ml/min BUN/Creatinine Ratio 25.5 H (10-20) Glucose 92 (70-99(Fasting)) mg/dl Calcium 9.3 (8.6-10.3) mg/dl Total Bilirubin 0.1 L (0.2-1.0) mg/dl AST TNP 11 L ALT 11 (7-52) U/L Alkaline Phosphatase 47 (34-104) U/L Total Protein 8.3 (6.0-8.3) gm/dl Albumin 4.9 (3.4-5.0) gm/dl Globulin 3.4 (2.5-4.0) gm/dl Albumin/Globulin Ratio 1.4 (0.9-2) Acetaminophen 7 L (10-30) ug/ml Administered Medications Acetylcysteine 2,720 mg/ (Dextrose) 513.6 mls @ 125 mls/hr IV ONCE ONE; Protocol Stop: 04/10/24 14:25 Last Admin: 04/10/24 11:14 Dose: 125 mls/hr Documented By: KV Discontinued Medications Acetylcysteine (Acetylcysteine Iv 21 Hr Regimen (>40kg)) 1 each IV NOW STA; Protocol Stop: 04/10/24 09:20 Last Admin: 04/10/24 10:01 Dose: Not Given Documented By: ROSELYN Amoxicillin/Clavulanate Potassium (Amoxicillin/Clavulanate 875 Mg Tab) 1 tab PO NOW ONE; Protocol Stop: 04/10/24 07:11 Last Admin: 04/10/24 07:33 Dose: 1 tab Documented By: SHAINA Acetylcysteine 8,160 mg/ (Dextrose) 240.8 mls @ 200 mls/hr IV ONCE ONE; Protocol Stop: 04/10/24 10:31 Last Admin: 04/10/24 09:56 Dose: 200 mls/hr Documented By: ROSELYN Ampicillin Sodium/Sulbactam Sodium 3,000 mg/ Sodium Chloride 100 mls @ 200 mls/hr IV NOW STA Stop: 04/10/24 11:36 Last Infusion: 04/10/24 14:07 Dose: Infused Documented By: Admin: 04/10/24 13:18 Dose: 200 mls/hr Documented By: JORDAN Ioversol (Optiray 320 100ml) 94 ml IV ONCE ONE Stop: 04/10/24 09:46 Last Admin: 04/10/24 09:45 Dose: 94 ml Documented By: ITA Ketorolac Tromethamine (Ketorolac Tromethamine 15 Mg/Ml Vial) 15 mg IV NOW ONE Stop: 04/10/24 09:07 Last Admin: 04/10/24 09:10 Dose: 15 mg Documented By: SHAINA Ketorolac Tromethamine (Ketorolac Tromethamine 15 Mg/Ml Vial) 15 mg IV NOW ONE Stop: 04/10/24 11:08 Last Admin: 04/10/24 11:14 Dose: 15 mg Documented By: JORDAN Miscellaneous (Stat Iv/Im) 1 each N/A NOW STA Stop: 04/10/24 09:20 Last Admin: 04/10/24 10:01 Dose: Not Given Documented By: ROSELYN Imaging Data Radiologist's Impression: Face CT 04/10/24 09:18 CT SCAN OF THE FACIAL BONES WITH IV CONTRAST CLINICAL HISTORY: Dental infection. COMPARISON STUDY: CT of the neck dated 08/06/2022. TECHNIQUE: High-resolution CT scan of the facial bones is performed following administration of 94 cc of Optiray 320. Images are reviewed in the axial, sagittal, and coronal planes. IV contrast was administered without complication. A dose lowering technique was utilized adhering to the principles of ALARA. FINDINGS: The skeletal structures are well mineralized. There is no evidence of facial bone fracture. The bony orbits are intact and the orbital contents are within normal limits. The zygomatic arches, nasal bones, and pterygoid plates are preserved. The maxilla and mandible are intact. There are no layering blood products within the paranasal sinuses. There is moderate mucosal thickening in the right maxillary antrum. The remaining paranasal sinuses are clear. The mastoid air cells are well pneumatized. The visualized calvarium and upper cervical spine are maintained. Partially imaged brain parenchyma is within normal limits. There are dental caries and large periapical lucencies involving right maxillary molars. There are also dental caries involving the left maxillary molars as well as bilateral mandibular molars. There is no evidence of periodontal abscess. IMPRESSION: 1. Periodontal disease as above with numerous dental caries involving the maxillary and mandibular molars bilaterally. 2. There are large periapical lucencies seen around right maxillary molars. Follow-up with dentistry is recommended. 3. No periodontal abscess is identified. ACT 112: Negative or not required by law. Electronically signed by: Enrrique Prieto M.D. 04/10/2024 10:54 AM Discharge Plan Visit Data Chief Complaint: Dental/Oral Stated Complaint: POSSIBLE TOOTH ABCESS ED Provider: Sheldon Matias Discharge Problem: Accidental acetaminophen overdose, Dental abscess Patient Disposition: Admitted As Inpatient Discharge Instructions Interventions: ED Discharge Assessment Last Done: 04/10/24 13:33
[2024-04-10 08:27] LABS: Basophils # (auto) 0.08 K/uL (0.00-0.20); Basophils % (auto) 0.7 %; Eosinophils # (auto) 0.29 K/uL (0.00-0.50); Eosinophils % (auto) 2.6 %; Hematocrit (blood only) 43.7 % (37.0-47.0); Hemoglobin 14.8 g/dl (12.0-16.0); Immature Granulocytes # (auto) 0.03 K/uL (0.01-0.20); Immature Granulocytes % (auto) 0.3 %; Lymphocytes # (auto) 3.32 K/uL (1.20-3.40); Mean Corpuscular Hemoglobin 30.1 pg (25.0-34.0); Mean Corpuscular Hgb Conc 33.9 g/dL (32.0-36.0); Mean Corpuscular Volume 88.8 fL (80.0-100.0); Mean Platelet Volume 10.6 fL (9.4-12.4); Monocytes # (auto) 0.76 K/uL (0.11-0.59); Monocytes % (auto) 6.9 %; Neutrophils # (auto) 6.59 K/uL (1.40-6.50); Neutrophils % (auto) 59.5 %; Platelet Count 416 K/uL (130-400); RDW Coefficient of Variation 13.2 % (11.5-14.5); RDW Standard Deviation 43.8 fL (36.4-46.3); Red Blood Count 4.92 M/uL (4.20-5.40); White Blood Count 11.07 K/ul (4.8-10.8)
[2024-04-10 08:57] LABS: Alanine Aminotransferase 11 U/L (7-52); Albumin Globulin Ratio 1.4 (0.9-2); Albumin Level 4.9 gm/dl (3.4-5.0); Alkaline Phosphatase 47 U/L (34-104); BUN Creatinine Ratio 25.5 (10-20); Bilirubin,Total 0.1 mg/dl (0.2-1.0); Blood Urea Nitrogen 14 mg/dl (6-23); Calcium 9.3 mg/dl (8.6-10.3); Carbon Dioxide 26 mmol/L (21-32); Chloride 105 mmol/L (98-107); Creatinine Clr Calc Pharmacy 136.6 ml/min; Est GFR (African American) > 150.0 ml/min; Est GFR (Non-African American) 132.2 ml/min; Globulin 3.4 gm/dl (2.5-4.0); Glucose 92 mg/dl (70-99(Fasting)); Total Protein 8.3 gm/dl (6.0-8.3)
[2024-04-10] MEDS: KETOROLAC TROMETHAMINE 15 MG/ML VIAL IV ONE ×3 (09:10→21:52)
[2024-04-10] MEDS: OPTIRAY 320 100ml IV ONE (09:45)
[2024-04-10 09:51] LABS: Potassium 3.8 mmol/L (3.5-5.1)
[2024-04-10] MEDS: ACETYLCYSTEINE IV ONE ×3 (09:56→14:32)
[2024-04-10] MEDS: DEXTROSE 5% IV ONE ×3 (09:56→14:32)
[2024-04-10] MEDS: STAT IV/IM STA (10:01)
[2024-04-10] MEDS: AcetylCYSTEINE IV 21 HR REGIMEN (>40KG) IV STA (10:01)
--- NOTE | 2024-04-10 10:56 | CT Scan Report ---
CT SCAN OF THE FACIAL BONES WITH IV CONTRAST CLINICAL HISTORY: Dental infection. COMPARISON STUDY: CT of the neck dated 08/06/2022. TECHNIQUE: High-resolution CT scan of the facial bones is performed following administration of 94 c c of Optiray 320. Images are reviewed in the axial, sagittal, and coronal planes. IV contrast was adm inistered without complication. A dose lowering technique was utilized adhering to the principles of ALARA. FINDINGS: The skeletal structures are well mineralized. There is no evidence of facial bone fracture. The bony orbits are intact and the orbital contents are within normal limits. The zygomatic arches, nasal bones, and pterygoid plates are preserved. The maxilla and mandible are intact. There are no la yering blood products within the paranasal sinuses. There is moderate mucosal thickening in the right maxillary antrum. The remaining paranasal sinuses are clear. The mastoid air cells are well pneumati zed. The visualized calvarium and upper cervical spine are maintained. Partially imaged brain parench yma is within normal limits. There are dental caries and large periapical lucencies involving right m axillary molars. There are also dental caries involving the left maxillary molars as well as bilatera l mandibular molars. There is no evidence of periodontal abscess. IMPRESSION: 1. Periodontal disease as above with numerous dental caries involving the maxillary and mandibular mo lars bilaterally. 2. There are large periapical lucencies seen around right maxillary molars. Follow-up with dentistry is recommended. 3. No periodontal abscess is identified. ACT 112: Negative or not required by law. Electronically signed by: Enrrique Prieto M.D. 04/10/2024 10:54 AM
--- NOTE | 2024-04-10 11:53 | History & Physical Report ---
Date of Service April 10, 2024 Assessment & Plan (1) Accidental acetaminophen overdose: Plan: This is a 23 y/o female with POTS, EDS, complex regional pain syndrome, and other history as outlined below who presents to the ED with worsening pain in her right upper molar. Pt reports taking 2 g of acetaminophen up to 4x/day for the last few days. Initial acetaminophen level in the ED was 7, LFTs normal. Due to amount of acetaminophen pt consumed in the last few days, ED provider started the acetylcysteine protocol and referred patient for admission. Pt also evaluated for dental infection and will be seen by oral maxillofacial surgeon this afternoon for possible procedure - Admit to med telemetry - Continue NAC protocol - Labs in the AM including CBC, BMP, LFTs, INR (2) Dental abscess: Plan: Appreciate input from oral surgeon - tentative plan for OR this afternoon. Will keep pt NPO for now Starting Unasyn per recommendation Oxycodone for pain since need to avoid acetaminophen, would prefer to avoid NSAIDs in view of large amounts of ibuprofen, which pt has also been using at home to try to control the pain. Plan Pt seen and reviewed with collaborating physician, Dr. Chang. Plan of care discussed and as outlined above. Code status: full code DVT prophylaxis: Lovenox Admit to med telemetry Suze Alex PA-C History of Present Illness Chief Complaint: dental infection Primary Care Provider: Cande Chavarria MD This is a 23 y/o female with POTS, EDS, complex regional pain syndrome, and other history as outlined below who presents to the ED with worsening pain in her right upper molar. Pt reports that last week, she noted episodes of elevated heart rate, which seems to happen with known POTS when she is getting sick. Three days ago, she developed generalized malaise, fatigue, and myalgias. Two days ago, she started with pain in right upper molar, which has gradually been worsening since then. She has noted chills and sweats with low-grade fever this morning around 100F. Today, she is also nauseated and has a headache. She had one episode of vomiting. She has a history of multiple dental caries but has not been able to have these addressed due to underlying medical issues. For the pain, she has been using acetaminophen 500 mg 4 tab up to every 6 hours and ibuprofen 200 mg 6 tab up to every 6 hours, but this has been only minimally helpful. The Toradol she received in the ED has helped the pain. Her LMP was last week. Denies cough, congestion, sore throat, urinary symptoms, or diarrhea. Allergies Allergy/AdvReac Type Severity Reaction Status Date / Time tramadol Allergy Intermediate Hives Verified 11/04/23 00:32 latex Allergy Mild IF ON SKIN Verified 11/04/23 00:32 TOO LONG--ITCHY RASH cefdinir Allergy Unknown Tachycardia Verified 11/04/23 00:32 and Rash Home Medications Medication Instructions Recorded Confirmed Type ibuprofen 200 mg tablet 600 - 800 mg PO Q6H PRN Fever Or 03/03/20 04/10/24 History Pain acetaminophen 500 mg tablet 1,000 mg PO Q6H PRN Pain 11/04/23 04/10/24 History (Tylenol Extra Strength) diphenhydramine HCl 25 mg capsule 25 mg PO DIRECTED PRN SLEEP/ 11/04/23 04/10/24 History (Benadryl) NEEDED cyclobenzaprine 10 mg tablet 10 mg PO BID PRN Muscle Spasm 04/10/24 04/10/24 History 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 POTS (postural orthostatic tachycardia syndrome) Surgical History (Updated 04/10/24 @ 11:21 by Karla Alex PA-C) Status post total shoulder arthroplasty S/P insertion of spinal cord stimulator subsequently removed Status post bone graft Family History (Updated 04/10/24 @ 11:22 by Karla Alex PA-C) Other Bipolar disorder Colorectal cancer Social History Smoking Status: Current every day smoker Tobacco Type: E-cigarettes / Vaping Second Hand Exposure: No; Do You Dip or Chew Tobacco: No; Hx Alcohol Use: Yes Alcohol type: wine Hx Substance Use: No Preferred Language: Citizen Of [place] Medical Records Coder Required: No Beliefs That Will Affect Care: None Current Living Situation: Family Feels Safe at Home: Yes Assistive Devices: None Review of Systems Review of Systems: All systems reviewed & are unremarkable except as noted in Subjective Physical Exam Physical Exam: General: awake, alert, NAD HEENT: no scleral icterus, +mild swelling of right maxillary area, multiple dental caries Neck: trachea midline, no significant LAD Heart: RRR Lungs: CTA bilaterally, no W/R/R Abdomen: soft, +BS, non-tender to palpation, no hepatomegaly on percussion or palpation Extremities: distal pulses intact and equal, no pedal edema Skin: no jaundice Neurologic: no confusion or dysarthria, moving all extremities Results & Data Results & Data Vital Signs (Past 12 Hours) Vital Signs Temp Pulse Pulse Resp BP BP Pulse Ox 04/10/24 10:03 92 H 20 122/83 100 04/10/24 05:35 36.8 C 108 H 18 128/86 100 O2 Del Method 04/10/24 10:03 Room Air 04/10/24 05:35 Room Air Laboratory Results Lab Results 04/10/24 04/10/24 Range/Units 07:48 09:14 WBC 11.07 H (4.8-10.8) K/ul RBC 4.92 (4.20-5.40) M/uL Hgb 14.8 (12.0-16.0) g/dl Hct 43.7 (37.0-47.0) % MCV 88.8 (80.0-100.0) fL MCH 30.1 (25.0-34.0) pg MCHC 33.9 (32.0-36.0) g/dL RDW Std Deviation 43.8 (36.4-46.3) fL RDW Coeff of Klaudia 13.2 (11.5-14.5) % Plt Count 416 H (130-400) K/uL MPV 10.6 (9.4-12.4) fL Immature Gran % (Auto) 0.3 % Neut % (Auto) 59.5 % Lymph % (Auto) 30.0 % [place] % (Auto) 6.9 % Eos % (Auto) 2.6 % Baso % (Auto) 0.7 % Neut # (Auto) 6.59 H (1.40-6.50) K/uL Lymph # (Auto) 3.32 (1.20-3.40) K/uL [place] # (Auto) 0.76 H (0.11-0.59) K/uL Eos # (Auto) 0.29 (0.00-0.50) K/uL Baso # (Auto) 0.08 (0.00-0.20) K/uL Immature Gran # (Auto) 0.03 (0.01-0.20) K/uL Sodium TNP 138 Potassium TNP 3.8 Chloride 105 (98-107) mmol/L Carbon Dioxide 26 (21-32) mmol/L Anion Gap TNP BUN 14 (6-23) mg/dl Creatinine 0.55 L (0.6-1.2) mg/dl Est Cr Clr Drug Dosing 136.6 ml/min Est GFR ( Amer) > 150.0 ml/min Est GFR (Non-Af Amer) 132.2 ml/min BUN/Creatinine Ratio 25.5 H (10-20) Glucose 92 (70-99(Fasting)) mg/dl Calcium 9.3 (8.6-10.3) mg/dl Total Bilirubin 0.1 L (0.2-1.0) mg/dl AST TNP 11 L ALT 11 (7-52) U/L Alkaline Phosphatase 47 (34-104) U/L Total Protein 8.3 (6.0-8.3) gm/dl Albumin 4.9 (3.4-5.0) gm/dl Globulin 3.4 (2.5-4.0) gm/dl Albumin/Globulin Ratio 1.4 (0.9-2) Acetaminophen 7 L (10-30) ug/ml Diagnostic Findings Face CT 04/10/24 09:18 CT SCAN OF THE FACIAL BONES WITH IV CONTRAST CLINICAL HISTORY: Dental infection. COMPARISON STUDY: CT of the neck dated 08/06/2022. TECHNIQUE: High-resolution CT scan of the facial bones is performed following administration of 94 cc of Optiray 320. Images are reviewed in the axial, sagittal, and coronal planes. IV contrast was administered without complication. A dose lowering technique was utilized adhering to the principles of ALARA. FINDINGS: The skeletal structures are well mineralized. There is no evidence of facial bone fracture. The bony orbits are intact and the orbital contents are within normal limits. The zygomatic arches, nasal bones, and pterygoid plates are preserved. The maxilla and mandible are intact. There are no layering blood products within the paranasal sinuses. There is moderate mucosal thickening in the right maxillary antrum. The remaining paranasal sinuses are clear. The mastoid air cells are well pneumatized. The visualized calvarium and upper c ervical spine are maintained. Partially imaged brain parenchyma is within normal limits. There are dental caries and large periapical lucencies involving right maxillary molars. There are also dental caries involving the left maxillary molars as well as bilateral mandibular molars. There is no evidence of periodontal abscess. IMPRESSION: 1. Periodontal disease as above with numerous dental caries involving the maxillary and mandibular molars bilaterally. 2. There are large periapical lucencies seen around right maxillary molars. Follow-up with dentistry is recommended. 3. No periodontal abscess is identified. ACT 112: Negative or not required by law. Electronically signed by: Enrrique Prieto M.D. 04/10/2024 10:54 AM Medications Administered Acetylcysteine 2,720 mg/ (Dextrose) 513.6 mls @ 125 mls/hr IV ONCE ONE; Protocol Stop: 04/10/24 14:25 Last Admin: 04/10/24 11:14 Dose: 125 mls/hr Documented By: JORDAN Discontinued Medications Acetylcysteine (Acetylcysteine Iv 21 Hr Regimen (>40kg)) 1 each IV NOW STA; Protocol Stop: 04/10/24 09:20 Last Admin: 04/10/24 10:01 Dose: Not Given Documented By: ROSELYN Amoxicillin/Clavulanate Potassium (Amoxicillin/Clavulanate 875 Mg Tab) 1 tab PO NOW ONE; Protocol Stop: 04/10/24 07:11 Last Admin: 04/10/24 07:33 Dose: 1 tab Documented By: SHAINA Acetylcysteine 8,160 mg/ (Dextrose) 240.8 mls @ 200 mls/hr IV ONCE ONE; Protocol Stop: 04/10/24 10:31 Last Admin: 04/10/24 09:56 Dose: 200 mls/hr Documented By: ROSELYN Ioversol (Optiray 320 100ml) 94 ml IV ONCE ONE Stop: 04/10/24 09:46 Last Admin: 04/10/24 09:45 Dose: 94 ml Documented By: ITA Ketorolac Tromethamine (Ketorolac Tromethamine 15 Mg/Ml Vial) 15 mg IV NOW ONE Stop: 04/10/24 09:07 Last Admin: 04/10/24 09:10 Dose: 15 mg Documented By: SHAINA Ketorolac Tromethamine (Ketorolac Tromethamine 15 Mg/Ml Vial) 15 mg IV NOW ONE Stop: 04/10/24 11:08 Last Admin: 04/10/24 11:14 Dose: 15 mg Documented By: JORDAN Miscellaneous (Stat Iv/Im) 1 each N/A NOW STA Stop: 04/10/24 09:20 Last Admin: 04/10/24 10:01 Dose: Not Given Documented By: ROSELYN Code Status & VTE Plan VTE Prophylaxis Plan VTE Prophylaxis will be ordered: Yes Supervising Physician Co-Signing Physician Notes Pt was seen and examined by myself, Rupali Chang MD on the day of service. Care was coordinated with Karla Alex PA-C. 23yoF presenting with right sided facial and dental pain that has been ongoing for days. Has been using OTC tylenol and ibuprofen at home. Tells this provider that she used four 500mg tylenol tablets every 4 hours for 2 days, then yesterday has been using ibuprofen to help with her pain. States having some nausea, denies abdominal pain. Abdomen soft and nontender on exam. Acetaminophen level <7, LFTs currently wnl. Given time from last use, per normogram, NAC treatment initiated in the ED. Continue NAC 21 hr protocol, follow liver function tests (LFTs, PT/INR, etc) Surgical management for dental abscesses noted on CT per OMFS. Continue Unasyn. Pain control- avoid tylenol/ibuprofen at this time. Otherwise as above I spent a total [id number] coordinating, documenting, and providing care for this patient excluding time spent in the performance of separately billed services (1) Accidental acetaminophen overdose Encounter type: initial encounter Qualified Code(s): T39.1X1A - Poisoning by 4-Aminophenol derivatives, accidental (unintentional), initial encounter
--- NOTE | 2024-04-10 13:00 | Oral/Maxillofacial Consult ---
Date of Consultation April 10, 2024 Assessment & Plan (1) Accidental acetaminophen overdose: (2) Complex regional pain syndrome I: (3) Dental abscess: (4) Facial cellulitis: (5) Anxiety: (6) Depression: History of Present Illness Reason for Consultation: infection right palate History of Present Illness Oral Maxillofacial Surgery Exam Present Complaint: Patient is in intense pain from infection upper right jaw and palate I have pain/swelling/drainage from my infected teeth. Symptoms have been ongoing for a while. Today pain is intense with acute swelling right palate Tylenol overdose -due to acute pain from infection Oral Exam: Finding--Swollen palate right side, grossly infected # 3 Other teeth have carious lesion Overall good dental care impacted teeth noted Imaging: The CT was reviewed, there were no abnormal findings other then the impacted/malposed wisdom teeth, carious upper right molars The TMJ are well positioned and no evidence of bony pathology. The sinus, supporting bone all WNL-noted thickness of the right sinus secondary to the ongoing dental pathology upper right 2-3 area Evaluated the nerve/sinus relationship to the roots of the teeth. The following teeth were grossly fractured # 3 CT SCAN OF THE FACIAL BONES WITH IV CONTRAST CLINICAL HISTORY: Dental infection. A. FINDINGS: The skeletal structures are well mineralized. There is no evidence of facial bone fracture. The bony orbits are intact and the orbital contents are within normal limits. The zygomatic arches, nasal bones, and pterygoid plates are preserved. The maxilla and mandible are intact. There are no layering blood products within the paranasal sinuses. There is moderate mucosal thickening in the right maxillary antrum. The remaining paranasal sinuses are clear. The mastoid air cells are well pneumatized. The visualized calvarium and upper cervical spine are maintained. Partially imaged brain parenchyma is within normal limits. There are dental caries and large periapical lucencies involving right maxillary molars. There are also dental caries involving the left maxillar y molars as well as bilateral mandibular molars. There is no evidence of periodontal abscess. IMPRESSION: 1. Periodontal disease as above with numerous dental caries involving the maxillary and mandibular molars bilaterally. 2. There are large periapical lucencies seen around right maxillary molars. Follow-up with dentistry is recommended. 3. No periodontal abscess is identified. Soft tissue: The floor of the mouth, tongue,soft palate, posterior pharyngeal area all with in normal limits, no pathology or abnormal findings noted. There is lateral enlargement of the right hard palate Oral Care: Overall oral care is good Occlusion: Class I TMJ exam: No pop, clicking, pain, good ROM, No history of TMJ injury or dysfunction Periodontal exam: Overall all some mild gingival tissue inflammation with early evidence of periodontal pathology. Head/Neck exam: Neck is supple, FROM, Able to extend and flex neck w/o difficulty, no masses, no abnormalities, no airway issues, no evidence of sleep apnea. Treatment Plan: Need to do I&D on the palate right side and remove the grossly infected upper molars. Set up with general anesthesia in hospital due to complexity of the procedure Need for 23 observation secondary to the Tylenol overdoes I reviewed the treatment plan and consent with the patient. Understanding was expressed. Time was given for questions regarding the surgery, risks and post op care. Discussed alternative to treatment--procedure as planned, Do not do surgery Right palatal I&D with extraction of infected upper molars #3 The following teeth are decayed and fractured and removal is indicated VEENA # 3 Risks discussed: Bleeding,Pain,swelling,infection, dry socket, delayed healing, nerve injury to face,lips,tongue,chin area which could be permanent (rare). Need for a dental exam with Panorex TMJ, jaw stiffness, change in bite (rare), ear pain (referred). Sinus problems like fistula or infection. Need to leave a small root fragment in place to avoid injury to nerve or sinus. Relationship of wisdom teeth to nerve/sinus and risk of jaw fracture. Home care reviewed: Dental follow up with a dentist for treatment planing tooth brushing, rinsing, follow up care with Dr Espinosa. diet=[id number] dental. Discussed activity level, driving/work while on Rx pain Meds. Surgery to be set up for emergency I&D today in OR then 23 hr observation Allergies Allergy/AdvReac Type Severity Reaction Status Date / Time tramadol Allergy Intermediate Hives Verified 04/10/24 14:36 latex Allergy Mild IF ON SKIN Verified 04/10/24 14:36 TOO LONG--ITCHY RASH cefdinir Allergy Unknown Tachycardia Verified 04/10/24 14:36 and Rash Home Medications Medication Instructions Recorded Confirmed Type ibuprofen 200 mg tablet 600 - 800 mg PO Q6H PRN Fever Or 03/03/20 04/10/24 History Pain acetaminophen 500 mg tablet 1,000 mg PO Q6H PRN Pain 11/04/23 04/10/24 History (Tylenol Extra Strength) diphenhydramine HCl 25 mg capsule 25 mg PO DIRECTED PRN SLEEP/ 11/04/23 04/10/24 History (Benadryl) NEEDED cyclobenzaprine 10 mg tablet 10 mg PO BID PRN Muscle Spasm 04/10/24 04/10/24 History Patient History Medical History (Updated 04/10/24 @ 14:46 by Balaji Espinosa DMD) History of bipolar disorder Shoulder dislocation Horseshoe kidney PTSD (post-traumatic stress disorder) 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 POTS (postural orthostatic tachycardia syndrome) Surgical History Status post total shoulder arthroplasty S/P insertion of spinal cord stimulator subsequently removed Status post bone graft Family History Other Bipolar disorder Colorectal cancer Social History Smoking Status: Current every day smoker Tobacco Type: E-cigarettes / Vaping Second Hand Exposure: No; Do You Dip or Chew Tobacco: No; Hx Alcohol Use: Yes Alcohol type: wine Hx Substance Use: No Preferred Language: Romansh Graduate Student Required: No Beliefs That Will Affect Care: None Current Living Situation: Family Feels Safe at Home: Yes Assistive Devices: None Results & Data Vital Signs (Past 12 Hours) Vital Signs Temp Pulse Pulse Resp BP BP Pulse Ox 04/10/24 10:03 92 H 20 122/83 100 04/10/24 05:35 36.8 C 108 H 18 128/86 100 O2 Del Method 04/10/24 10:03 Room Air 04/10/24 05:35 Room Air PG Care Time/CCT Total # of Minutes Spent Total Time Spent with Patient: Total time spent is greater than 50% in coordination of care (as documented) at patient's floor/unit and/or counseling patient: Coding Level of Care Code 39204 OFFICE CONSULT LVL Diagnoses Accidental acetaminophen overdose, initial encounter T39.1X1A Encounter type: initial encounter Complex regional pain syndrome type 1, affecting unspecified site G90.50 Complex regional pain syndrome affected site: unspecified Dental abscess K04.7 Facial cellulitis L03.211 Anxiety F41.9 Depression, unspecified depression type F32.A Depression Type: unspecified (1) Accidental acetaminophen overdose Encounter type: initial encounter Qualified Code(s): T39.1X1A - Poisoning by 4-Aminophenol derivatives, accidental (unintentional), initial encounter (2) Complex regional pain syndrome I Complex regional pain syndrome affected site: unspecified Qualified Code(s): G90.50 - Complex regional pain syndrome I, unspecified (6) Depression Depression Type: unspecified Qualified Code(s): F32.A - Depression, unspecified
[2024-04-10] MEDS: AMPICILLIN/SULBACTAM SOD 3,000 MG in SODIUM CHLOR 0.9% MINI-B 100 ML IV STA (13:18)
[2024-04-10] MEDS ORDERED: oxyCODONE HCL IR 5 MG TAB (IMMEDIATE RELEASE) PO PRN (13:43)
[2024-04-10] MEDS ORDERED: ROCURONIUM BROMIDE 10 MG/ML 5 ML VIAL IV ONE (14:29)
[2024-04-10] MEDS ORDERED: PROPOFOL IV EMULSION 10 MG/ML 20 ML VIAL IV ONE (14:29)
[2024-04-10] MEDS ORDERED: LIDOCAINE 2% 2 ML VIAL/AMP(20MG/ML) INFIL ONE (14:29)
[2024-04-10] MEDS ORDERED: MIDAZOLAM HCL 1 MG/ML 2ML VIAL ONE (14:49)
[2024-04-10] MEDS ORDERED: fentaNYL citrate PF 100 MCG/2 ML VIAL ONE (14:50)
--- NOTE | 2024-04-10 14:51 | History & Physical Bridge Note ---
Date of Service April 10, 2024 History & Physical Bridge Note I have examined the patient, reviewed the History & Physical and in the interval since the performance of the History & Physical I have noted the following changes of clinical significance: no changes noted. OK for the I&D with extraction # 3
--- NOTE | 2024-04-10 14:52 | Anesthesiology Consultation ---
Date of Service April 10, 2024 Assessment & Plan Chart Review Chart Review: Acceptable Risk for Surgery and Patient NOT seen in Pre Admission Testing being treated for unitentional tylenol overdose Consults Requested none History Surgery Operation Date: 04/10/24 15:55 Proposed Procedures p Right Palatal Abscess Incision and Drainage - Balaji Espinosa DMD s Extraction #3 - Balaji Espinosa DMD Height/Weight Height: 5 ft 6 in Weight: 54.4 kg Allergies Allergy/AdvReac Type Severity Reaction Status Date / Time tramadol Allergy Intermediate Hives Verified 04/10/24 14:36 latex Allergy Mild IF ON SKIN Verified 04/10/24 14:36 TOO LONG--ITCHY RASH cefdinir Allergy Unknown Tachycardia Verified 04/10/24 14:36 and Rash Medications Home Medications Medication Instructions Recorded Confirmed Last Taken ibuprofen 200 mg tablet 600 - 800 mg PO Q6H PRN Fever Or 03/03/20 04/10/24 04/10/24 Pain acetaminophen 500 mg tablet 1,000 mg PO Q6H PRN Pain 11/04/23 04/10/24 04/10/24 (Tylenol Extra Strength) diphenhydramine HCl 25 mg capsule 25 mg PO DIRECTED PRN SLEEP/ 11/04/23 04/10/24 Unknown (Benadryl) NEEDED cyclobenzaprine 10 mg tablet 10 mg PO BID PRN Muscle Spasm 04/10/24 04/10/24 Unknown Active Medications Generic Name Dose Route Start Last Admin Trade Name Freq PRN Reason Stop Dose Admin Acetylcysteine 5,440 mg/ 1,027.2 mls @ 62.5 mls/hr 04/10/24 14:19 04/10/24 14:32 Dextrose IV 04/11/24 06:45 62.5 mls/hr ONCE ONE Administration Protocol NPO Date Last Intake of Fluids: 04/10/24 Time Last Intake of Fluids: 02:00 Date Last Intake of Solids: 04/10/24 Time Last Intake of Solids: 02:00 Past Medical History Medical History (Updated 04/10/24 @ 14:46 by Balaji Espinosa DMD) History of bipolar disorder Shoulder dislocation Horseshoe kidney PTSD (post-traumatic stress disorder) 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 POTS (postural orthostatic tachycardia syndrome) Past Family History Family History Other Bipolar disorder Colorectal cancer Past Surgical History Surgical History Status post total shoulder arthroplasty S/P insertion of spinal cord stimulator subsequently removed Status post bone graft Social History Smoking Status: Current every day smoker Do You Dip or Chew Tobacco: No Hx Alcohol Use: Yes Alcohol type: wine alcohol intake frequency: a few times a month Hx Substance Use: No substance use type: does not use Physical Exam Vital Signs Last Vital Signs Temp 36.6 C 04/10/24 14:29 Pulse 93 H 04/10/24 14:29 Resp 20 04/10/24 14:29 BP 117/75 04/10/24 14:29 Pulse Ox 100 04/10/24 14:29 O2 Del Method Room Air 04/10/24 14:29 Testing Laboratory Results 04/10/24 07:48 04/10/24 09:14
[2024-04-10] MEDS: LACTATED RINGER'S 1,000 ML IV SCH (14:56)
[2024-04-10] MEDS ORDERED: ePHEDrine sulfate 50 MG/ML AMP IV PRN (14:59)
[2024-04-10] MEDS ORDERED: ATROPINE SULFATE 0.1 MG/ML 10ML SYR IV PRN (14:59)
[2024-04-10] MEDS ORDERED: GLYCOPYRROLATE 0.2 MG/ML VIAL ONE (15:03)
[2024-04-10] MEDS ORDERED: SUGAMMADEX SODIUM 200 MG/2 ML VIAL IV ONE (15:05)
[2024-04-10] MEDS: SURGICEL ABSORB HEMOSTAT 2IN X 14IN TOP ONE (15:49)
[2024-04-10] MEDS: CHLORHEXIDINE GLUCONATE 0.12% 480 ML MT ONE (15:50)
[2024-04-10] MEDS: BUPIVACAINE/EPINEPHRINE 0.5% 1:200,000 1.8 ML CARP ONE (16:08)
--- NOTE | 2024-04-10 16:16 | Post Operative Brief Note ---
PG Immediate Post Op with CF Date of Surgery April 10, 2024 Pre & Post Diagnosis Operation Date: 04/10/24 15:55 Pre-Op Diagnosis: Dental abscess Post-Op Diagnosis: Dental abscess I identified the patient and participated in the time-out.: Yes Procedure Operation Date: 04/10/24 15:55 Actual Procedures p Right Palatal Abscess Incision and Drainage(Right) - Balaji Espinosa DMD s Extraction Tooth #2, #3, #31(Not Applicable) - Balaji Espinosa DMD Surgeon Balaji Espinosa DMD Manager Education none Estimated Blood Loss 5 Findings Consistent with Post-Op Diagnosis swelling of palate right side grossly infected teeth 2,3,31 Other teeth are also grossly carious but asymptomatic will require extraction in the future- 14,1516,17,18,19 Specimens Specimen Description: A) Infection Right Palate Anesthesia Type General Complications none Disposition Accompanied Patient To Recovery: Yes
[2024-04-10] MEDS: ONDANSETRON INJ 2 MG/ML 2 ML VIAL IV PRN ×2 (16:17→23:05)
--- NOTE | 2024-04-10 16:22 | Post Operative Brief Note ---
PG Immediate Post Op with CF Date of Surgery April 10, 2024 Pre & Post Diagnosis Operation Date: 04/10/24 15:55 Pre-Op Diagnosis: Dental abscess Post-Op Diagnosis: Dental abscess I identified the patient and participated in the time-out.: Yes Procedure Operation Date: 04/10/24 15:55 Actual Procedures p Right Palatal Abscess Incision and Drainage(Right) - Balaji Espinosa DMD s Extraction Tooth #2, #3, #31(Not Applicable) - Balaji Espinosa DMD Surgeon Balaji Espinosa DMD Chief Ophthalmic Technician none Estimated Blood Loss 5 Findings Consistent with Post-Op Diagnosis chronic palatal subperiosteal abscess with an acute exacerbation secondary to abscessed # 2,3 Specimens Specimen Description: A) Infection Right Palate Anesthesia Type General Complications none Disposition Accompanied Patient To Recovery: Yes
[2024-04-10] MEDS: fentaNYL citrate PF 100 MCG/2 ML VIAL IV PRN (16:30)
[2024-04-10] MEDS: HYDROmorphone INJ 0.5 MG/0.5 ML SYR IV STA ×2 (16:56→23:05)
[2024-04-10] MEDS ORDERED: AMPICILLIN SOD/SULBACTAM SOD 3 GM VIAL IV SCH (17:10)
--- NOTE | 2024-04-10 17:16 | Anesthesiology Progress Note ---
Date of Service April 10, 2024 Anesthesia Post Procedure Vital Signs Vital Signs: Temp Pulse Pulse Resp BP BP Pulse Ox 04/10/24 17:10 95 H 16 102/68 99 04/10/24 17:00 36.5 C 87 16 105/71 99 04/10/24 16:50 104 H 22 129/83 100 04/10/24 16:40 108 H 22 124/79 99 04/10/24 16:30 96 H 22 119/81 99 04/10/24 16:20 104 H 16 108/88 98 04/10/24 16:10 36.2 C L 109 H 14 111/80 100 04/10/24 15:09 90 04/10/24 14:29 36.6 C 93 H 20 117/75 100 04/10/24 10:03 92 H 20 122/83 100 04/10/24 05:35 36.8 C 108 H 18 128/86 100 O2 Del Method O2 Flow Rate 04/10/24 17:10 Nasal Cannula 2 04/10/24 17:00 Nasal Cannula 2 04/10/24 16:50 Nasal Cannula 3 04/10/24 16:40 Nasal Cannula 3 04/10/24 16:30 Nasal Cannula 3 04/10/24 16:20 Nasal Cannula 3 04/10/24 16:10 Nasal Cannula 3 04/10/24 15:09 04/10/24 14:29 Room Air 04/10/24 10:03 Room Air 04/10/24 05:35 Room Air Pain Intensity Mouth: Pain Intensity: 7 Transfer of Care Handoff Completed per policy Notes Mental Status: alert / awake / arousable Patient Amnestic to Procedure: Yes Nausea / Vomiting: adequately controlled Pain: adequately controlled Airway Patency, RR, SpO2: stable & adequate BP & HR: stable & adequate Hydration State: stable & adequate Anesthetic Complications: no major complications apparent and Pt Satisfied with anesthetic care
[2024-04-10] MEDS: oxyCODONE HCL IR 5 MG TAB (IMMEDIATE RELEASE) PO PRN (18:13)
[2024-04-10] MEDS: HYDROmorphone INJ 0.5 MG/0.5 ML SYR IV PRN (20:37)
[2024-04-10] MEDS: AMPICILLIN/SULBACTAM SOD 3,000 MG in SODIUM CHLOR 0.9% MINI-B 100 ML IV SCH (20:40)
[2024-04-11] MEDS: HYDROmorphone INJ 0.5 MG/0.5 ML SYR IV PRN (06:28)
[2024-04-11 06:42] LABS: Albumin Level 4.9 gm/dl (3.4-5.0); Anion Gap 10 (3-11); Bilirubin Direct 0.1 mg/dl (0-0.2); Bilirubin,Total 0.5 mg/dl (0.2-1.0); Calcium 10.1 mg/dl (8.6-10.3); Carbon Dioxide 25 mmol/L (21-32); Chloride 100 mmol/L (98-107); Sodium 135 mmol/L (136-145)
[2024-04-11 06:48] LABS: Alanine Aminotransferase 10 U/L (7-52); Alkaline Phosphatase 52 U/L (34-104); Aspartate Aminotransferase 12 U/L (13-39); Blood Urea Nitrogen 8 mg/dl (6-23); Creatinine Clr Calc Pharmacy 133.8 ml/min; Est GFR (African American) > 150.0 ml/min; Est GFR (Non-African American) 130.7 ml/min; Glucose 127 mg/dl (70-99(Fasting)); Total Protein 8.4 gm/dl (6.0-8.3)
[2024-04-11 07:09] LABS: Basophils # (auto) 0.02 K/uL (0.00-0.20); Basophils % (auto) 0.2 %; Eosinophils # (auto) 0.02 K/uL (0.00-0.50); Eosinophils % (auto) 0.2 %; Hematocrit (blood only) 42.8 % (37.0-47.0); Hemoglobin 14.3 g/dl (12.0-16.0); Immature Granulocytes # (auto) 0.04 K/uL (0.01-0.20); Immature Granulocytes % (auto) 0.3 %; Lymphocytes # (auto) 2.12 K/uL (1.20-3.40); Lymphocytes % (auto) 18.3 %; Mean Corpuscular Hemoglobin 29.4 pg (25.0-34.0); Mean Corpuscular Hgb Conc 33.4 g/dL (32.0-36.0); Mean Corpuscular Volume 87.9 fL (80.0-100.0); Mean Platelet Volume 11.1 fL (9.4-12.4); Monocytes # (auto) 0.63 K/uL (0.11-0.59); Monocytes % (auto) 5.4 %; Neutrophils # (auto) 8.77 K/uL (1.40-6.50); Neutrophils % (auto) 75.6 %; Platelet Count 320 K/uL (130-400); RDW Coefficient of Variation 13.1 % (11.5-14.5); RDW Standard Deviation 42.4 fL (36.4-46.3); Red Blood Count 4.87 M/uL (4.20-5.40)
[2024-04-11] MEDS ORDERED: ENOXAPARIN INJ 40 MG/0.4 ML SYR SQ SCH (09:00)
[2024-04-11] MEDS: ENOXAPARIN INJ 40 MG/0.4 ML SYR SQ SCH (09:27)
--- NOTE | 2024-04-11 09:27 | Oral/Maxillofacial Progress Nt ---
Date of Service April 11, 2024 Assessment & Plan Admission and Anticipated Discharge Date Admission Date: April 10, 2024 Subjective POST OP NOTE at 18 hours OK for D/C as per medicine The patient did very well post operatively-surgical sites look great There is minimal swelling as expected. Tissue tone =healthy normal tissue No sinus or nerve complications noted Excellent ROM Sutures in place Reviewed oral care for home care Reviewed diet, massage, exercise and continued home/oral care RTC to see Dr Espinosa 3 pm on Apr 18 Overall: Excellent healing from recent oral surgery Results & Data Vital Signs (Past 12 Hours) Vital Signs Temp Pulse Resp BP Pulse Ox O2 Del Method 04/11/24 07:55 36.8 C 91 H 22 98/62 L 98 Room Air 04/11/24 02:35 36.6 C 79 12 105/71 100 Room Air 04/10/24 22:46 36.7 C 114 H 22 123/71 97 Room Air PG Care Time/CCT Total # of Minutes Spent Total Time Spent with Patient: Total time spent is greater than 50% in coordination of care (as documented) at patient's floor/unit and/or counseling patient: Coding Level of Care Code None
[2024-04-11 11:40] VITALS: RESP 18; TEMP 97.7; O2SAT 100
[2024-04-11] MEDS: IBUPROFEN 600 MG TAB PO STA (12:42)
--- NOTE | 2024-04-11 13:17 | Discharge Summary ---
Date of Service April 11, 2024 Admission HPI Per Admitting Provider This is a 23 y/o female with POTS, EDS, complex regional pain syndrome, and other history as outlined below who presents to the ED with worsening pain in her right upper molar. Pt reports that last week, she noted episodes of elevated heart rate, which seems to happen with known POTS when she is getting sick. Three days ago, she developed generalized malaise, fatigue, and myalgias. Two days ago, she started with pain in right upper molar, which has gradually been worsening since then. She has noted chills and sweats with low-grade fever this morning around 100F. Today, she is also nauseated and has a headache. She had one episode of vomiting. She has a history of multiple dental caries but has not been able to have these addressed due to underlying medical issues. For the pain, she has been using acetaminophen 500 mg 4 tab up to every 6 hours and ibuprofen 200 mg 6 tab up to every 6 hours, but this has been only minimally helpful. The Toradol she received in the ED has helped the pain. Her LMP was last week. Denies cough, congestion, sore throat, urinary symptoms, or diarrhea. Admission Exam Per Admitting Provider General: awake, alert, NAD HEENT: no scleral icterus, +mild swelling of right maxillary area, multiple dental caries Neck: trachea midline, no significant LAD Heart: RRR Lungs: CTA bilaterally, no W/R/R Abdomen: soft, +BS, non-tender to palpation, no hepatomegaly on percussion or palpation Extremities: distal pulses intact and equal, no pedal edema Skin: no jaundice Neurologic: no confusion or dysarthria, moving all extremities Principal Diagnosis Dental Abscess, Right Palatal Abscess I and D Extraction of Tooth #2, #3 and #31 Discharge Exam Constitutional: WD/WN, vitals as above, NAD, sitting up in bed, pleasant, conversing easily Mouth- minimal swelling, sutures in place Respiratory: normal respiratory effort, lungs clear to auscultation, no wheeze, rales, rhonchi. Normal insp/exp effort, no accessory muscle use Cardiovascular: RRR, no murmur, no edema Vessels: no JVD or carotid bruit Chest: normal inspection of chest Abdomen: normal bowel sounds, soft, nontender, no hepatosplenomegaly Musculoskeletal: no cyanosis or clubbing, extremities motor strength 5/5 Skin: no rashes, warm and dry normal turgor Neurologic: PERRL, EOMI, accommodation nl, no face palsy, no dysarthria CN's II- XI intact bilaterally and moves all extremities Psychiatric: A+Ox3, euthymic affect Discharge Data Allergies Allergy/AdvReac Type Severity Reaction Status Date / Time tramadol Allergy Intermediate Hives Verified 04/10/24 14:36 latex Allergy Mild IF ON SKIN Verified 04/10/24 14:36 TOO LONG--ITCHY RASH cefdinir Allergy Unknown Tachycardia Verified 04/10/24 14:36 and Rash Consultations 04/10/24 11:08 ED Decision to Admit Stat Procedures Performed Operation Date: 04/10/24 15:55 Actual Procedures p Right Palatal Abscess Incision and Drainage(Right) - Balaji Espinosa DMD s Extraction Tooth #2, #3, #31(Not Applicable) - Balaji Espinosa DMD Ordered Studies 04/10/24 09:18 CT facial bones w con Stat Hospital Course (1) Accidental acetaminophen overdose: (2) Dental abscess: Plan This is a 23 y/o female with POTS, EDS, complex regional pain syndrome, and other history as outlined below who presents to the ED with worsening pain in her right upper molar. Pt reports taking 2 g of acetaminophen up to 4x/day for the last few days. Initial acetaminophen level in the ED was 7, LFTs normal. Patient was started on NAC protocol by the ED physician. Repeat LFTs were also within normal limits. Patient underwent I&D of the dental abscess and extraction of tooth #2, #3 and #31. Patient was prescribed clindamycin for 7 days by oral surgery I discussed with patient to limit the amount of Tylenol to less than 3 g/day. I suggested trying ibuprofen for pain control; prescribed ibuprofen. She was discharged home with instruction to follow-up with her PCP and oral surgery. Please note the above document was generated using voice recognition software. It may contain grammatical, syntax or spelling errors. Any formal questions or concerns about the content, text or information contained within the body of this dictation should be directly addressed to the provider for clarification Total Time Total Time Spent Total Time Spent (In Minutes): 34 Total Time Includes: Examination of the Patient, Discharge Planning, Medication Reconciliation, Communication With Other Providers and Other Discharge Plan Discharge Items Patient Disposition: Home - Self-Care Reason For Visit: DENTAL INFECTION, ACETAMINOPHEN OVERDOSE Discharge Diagnosis: s/p dento-facial infection Activity: Resume your previous activity Lifting: Gradually increase as tolerated Bathing: No limitations Exercise/Sports: Gradually increase as tolerated Weightbearing: Full weightbearing Non-emergency contact: Surgeon Call non-emergency contact if: you have any medication questions, your symptoms worsen, your temperature is above 101.5, your wound has increased redness, your wound has increased drainage and your wound pain has increased Follow-up/Referrals: Cande Chavarria MD [Primary Care Provider] - (Date & Time 04/14/2024 2:20 PM Provider Cande Chavarria MD Department [facility] ) Balaji Espinosa DMD [Physician] - Diet: Full liquid and Clear liquid Diet Texture: Easy to Chew Diet Comment: clear--full--advance to dental soft Addtl Attending Provider Instructions: ADDITIONAL ACTIVITY RECOMMENDATIONS: * [place] teeth after every meal. It is very important to keep your mouth clean to prevent infection. * Starting tonight rinse with the Peridex as directed then 2 x a day * it is very important to keep well hydrated, this prevents fever and possible dry socket pain SPECIAL CARE INSTRUCTIONS: *It is not uncommon that between day 2-4 that your swelling will be at its worst this is very normal, do not be alarmed. * Keep ice on the side of your face for the next 24 to 36 hours. This will help keep the swelling down. * After 36 hours, apply heat (hot water bottle or heating pad) for the next two days, as often as possible. * Tomorrow start rinsing your mouth with 1/2 teaspoon salt in 8 ounces warm water. This rinse should be used every 4-6 hours. * You may experience slight nausea. To prevent this, never take your medication on an empty stomach. If nauseated, take small sips of leona lux until you feel better; then you may start on applesauce and toast. * Some swelling is common. It should gradually decrease within 4-5 days. * A certain amount of bleeding is to be expected. It is often possible to control mild oozing by placing folded gauze over the area and biting down for 30 minutes. If you are unable to control excessive bleeding, call Dr Espinosa at [phone] * You may experience some discomfort for a few days. If pain or swelling increases, Call Dr Espinosa * Return to the office for a follow up check up on: APRIL 18 at 3 pm * office address--[address] phone # [phone] Pending Studies at Discharge: No Stand-Alone Forms: My [facility] Flow[employer], Smoking Cessation Medications and DC Order Prescriptions: New ibuprofen 600 mg tablet 600 mg PO Q8H PRN (Reason: pain) Qty: 30 0RF famotidine [Pepcid] 20 mg tablet 20 mg PO DAILY Qty: 30 0RF Continued oxycodone 5 mg tablet 5 mg PO Q6H PRN (Reason: pain) Qty: 10 0RF clindamycin HCl 300 mg capsule 300 mg PO TID 7 Days Qty: 21 0RF diphenhydramine HCl [Benadryl] 25 mg Capsule 25 mg PO DIRECTED PRN (Reason: SLEEP/ NEEDED) cyclobenzaprine 10 mg tablet 10 mg PO BID PRN (Reason: Muscle Spasm) Discontinued ibuprofen 200 mg Tablet 600 - 800 mg PO Q6H PRN (Reason: Fever Or Pain) acetaminophen [Tylenol Extra Strength] 500 mg Tablet 1,000 mg PO Q6H PRN (Reason: Pain) Discharge Orders: Discharge Order (Routine); Ordered 04/11/24 Ordered By: Rajan Danielson/Other Patient Handouts: [place] [facility]: Removal, [place] [facility] Surgery- Your Recovery Admission Data Admit Date/Time: 04/10/24 11:44 Attending Provider: Rajan Sun Admit Provider: Rupali Chang Primary Care Provider: Cande Chavarria Other Providers: Rupali Chang
[2024-04-11 14:00] VITALS: BP 106/68; PULSE 95
--- NOTE | 2024-04-17 21:40 | Operative Report ---
PG Post Operative Report Pre & Post Diagnosis Operation Date: 04/10/24 15:55 Pre-Op Diagnosis: Dental abscess Post-Op Diagnosis: Dental abscess I identified the patient and participated in the time-out.: Yes Procedure Operation Date: 04/10/24 15:55 Actual Procedures p Right Palatal Abscess Incision and Drainage(Right) - Balaji Espinosa DMD s Extraction Tooth #2, #3, #31(Not Applicable) - Balaji Espinosa DMD Surgeon Balaji Espinosa, SHRUTHI Regional Driver none Estimated Blood Loss 5 Findings Consistent with Post-Op Diagnosis Specimens infected tissue right palate Drains none Anesthesia Type General Complications none Disposition Accompanied Patient To Recovery: Yes Indications large palatal swelling (abscess) Infected teeth 2,3,31 Right Palatal Abscess Incision and Drainage(Right) Extraction Tooth #2, #3, #31 Description of Procedure ICD 10 K12.2 and K04.7 CPT 71577 upper left facial abscess CPT 73712 I&D abscess of the palate D7210 x 3 for teeth abscessed and carious teeth #2,3,31 Actual Procedures p Incision and Drainage upper left palate and Removal of Tooth #2, 3, 31 As a result of poor dental care there are many carious and fractured teeth resulting in the facial and palatal abscess This has resulted in the chronic infections, decayed and abscessed teeth She will need comprehensive dental care Once cleared for surgery general anesthesia was achieved, the eyes were protected by the anesthesia dept criteria. A time out was take for patient ID, antibiotics, equipment and position verification once all agreed the procedure began. Local anesthesia using Marcaine with a vasoconstrictor ( 1.8 ml per site) given into right inferior alveolar nerve and upper right side A throat pack was placed after the oral cavity was irrigated with saline. Once a surgical level of anesthesia was obtained and the local anesthesia was given time for the blocks the surgery was started. I turned my attention to the infection which was located in the subperiosteal area lower right and also upper left mucobuccal fold. Incision and Drainage of palatal subperiosteal area CPT 25746 Using a 15 blade an incision was made around the palatal gingival tissue from the tuberosity to area # 5 Once the incision was made a lot of pus extruded from the site. Because of the chronic nature of the infection there was a lot of scaring that contributed to the firm expansion of the palatal tissue. This tissue was removed to debulk the area, the tissue was scared and sent for pathology determination. A curved hemostat was carefully placed into the infected space along the palatal bone to insure adequate drainage. Some further drainage was now allowed to escape. I palpated the area and no further drainage was expressed. The area was irrigated with at least 100 ml of NS solution. I now turned my attention to remove the # 2 and 3 fractured decayed teeth. Upper # 2,3 D7210 x 2 I removed the grossly carious upper # 2 and 3. These were surgical extractions and required a facial flap. Once the flap was reflected I used a rongeur to remove the bone to allow the forceps to engage solid tooth structures. Now with the dental forceps I removed the tooth 2 and 3. The sinus was not involved. I used a file to smooth the irregular bone. The area was irrigated and curetted. The tissue was reapproximated with a 2-0 chromic. Lower # 31 D7210 x 1 A full thick Muco-periosteal flap was made and was reflected to expose the bone adjacent to # 31. The rongeur was used to remove bone, the tooth was removed with a 301 elevator and cow horn dental forceps., the mental nerve was intact, there was a large amount of granulation tissue on the apex and some more pus that was expressed. At this time there was no bleeding. The bone was trimmed, smoothed and the la rge flap was closed with a 2-0 chromic sutures. Completion of the case Once the I&D and extractions were completed, I inspected the sites to insure all bleeding was controlled. I removed the throat pack and suctioned the throat. A gauze pressure dressings was placed. All instrument and sponge count was correct. The patient was allowed to awake from the anesthesia. Once full awake the anesthesia tube was removed and the patient was taken to the recovery room with all vital sign stable. Upon full recovery she will be brought back to the floor The patient tolerated the surgery very well. I will follow the patient in my office upon D/C Rx and instructions will be given upon discharge. I attest to the content of the Intraoperative Record and any orders documented therein. Any exceptions are noted below.
== END 2024-04-11 15:05 | disposition home or self-care (01) | DRG 158 ==
LOC: ED 05:28 → SUATTDRO 11:44 → EDINP 11:44 → INTOOBSV 11:44 → 2W 13:33

== ENCOUNTER 2024-04-29 08:04 | Inpatient (IN) ==
[2024-04-29] MEDS: SODIUM CHLORIDE 0.9% 1,000 ML IV SCH ×2 (08:46→14:11)
--- NOTE | 2024-04-29 08:48 | Emergency Department Note ---
Impression & Plan SIRS (systemic inflammatory response syndrome), Sinus tachycardia, Abdominal pain, Acute hypokalemia, Elevated lactic acid level ED Provider Note HISTORY OF PRESENT ILLNESS: Patient is a 23-year-old female presenting with diarrhea, fevers and right upper quadrant abdominal pain. Patient reports she started feeling generally unwell starting 5 days ago. She had diffuse diarrhea and nausea without any vomiting. Reports that in the last few days her symptoms got significantly worse. She developed low-grade fevers, with Tmax being up to 102. She last took a dose of Tylenol about 1 hour prior to arrival. She is complaining of right upper quadrant abdominal pain. Denies any history of abdominal surgeries. She had oral surgery 3 weeks ago but has been off of antibiotics for 7 days. Denies any recent travel or recent sick contact exposures. Reports that over the last 3 days when she stands up she feels very lightheaded and woozy. She denies any dysuria or hematuria. Denies any chest pain. Reports feeling short of breath with her lightheadedness. Denies any DVT or PE history. She is not on any OCPs. ROS: as above PHYSICAL EXAM: Constitutional: Patient appears in no acute distress. HENT: Head: Normocephalic and atraumatic. Eyes: EOMI, PERRL Mouth/Throat: Mucous membranes moist. Neck: Trachea midline. Neck supple. Cardiovascular: Tachycardic with regular rhythm. No murmurs, rubs or gallops. Intact distal pulses. Pulmonary/Chest: No respiratory distress. Breath sounds clear and equal bilaterally. No wheezes or rales. Abdominal: Abdomen soft, no rebound or guarding. RUQ TTP Musculoskeletal: No edema, tenderness or deformity noted. Skin: Warm and dry. No rash, erythema, pallor or cyanosis Psychiatric: Appropriate mood and affect for situation. Neurological: Alert and keenly responsive. CN II-XII grossly intact, moving all extremities equally and fully. MDM: - Vitals signs showed tachycardia and tachypnea. - History obtained via patient. History as above. 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 At this time, monitor showed rate of 110 bpm with normal sinus rhythm, per my interpretation. - External medical records reviewed. Discharge summary dated 04/11/2024 was reviewed. Patient was admitted from the emergency department at that time for worsening pain in her right upper molar. She was found to have a dental tooth abscess in her right palatal abscess that was I&D. She had tooth extractions of tooth #2, 3 and 31. - EKG interpreted by myself showed normal sinus rhythm. Rate tachycardic at 147 bpm. QT 332. No acute ischemic changes. - Laboratory workup interpreted by myself showed slight leukocytosis (WBC 11.96); negative dimer; elevated lactate (5.1); hypokalemia (K 3.2); elevated anion gap (12); hyperglycemia (glucose 132); normal troponin; normal procalcitonin; negative hCG; elevated TSH (6.064) - Blood culture obtained. - UA negative for infection - CXR negative for pneumonia, per my interpretation - Patient very anxious in ER and given 0.5 mg IV ativan. Did develop an elevated temperature and given 15 mg IV toradol. - Viral respiratory panel negative. - Patient given 2L NS in ER. Patient sepsis volume fluid calculation based on ideal body weight is 1772.70 mL. - Given 4 mg IV zofran and 50 mcg IV fentanyl for nausea and abdominal pain symptoms. Repeat lactate within normal limits. - Patient empirically started on IV zosyn for antibiotic coverage. - CT abdomen/pelvis wiht IV contrast negative for acute pathology. Noted to have a normal appendix. Radiology does note the bladder wall appears thickened. - Discussion was had with case manager specialist about patient's case and need for admission - Hospitalist consulted for admission - Patient admitted to [facility] for further evaluation and management. I have personally spent 43 minutes of critical care time in the direct management of this patient. This includes bedside care, interpretation of diagnostic studies, and testing, discussion with consultants, patient, and family members, and other required patient management activities. This 43 minutes is in excess of all separately billable procedures. ASSESSMENT AND PLAN: Diagnosis: Sinus tachycardia; SIRS; abdominal pain; acute hypokalemia; elevated lactic acid level Plan: admit Past Med/Surg History Problem List (Updated 04/29/24 @ 12:38 by Valerie Singer MD) Elevated lactic acid level (Acute) Acute hypokalemia (Acute) Abdominal pain (Acute) Sinus tachycardia (Acute) SIRS (systemic inflammatory response syndrome) (Acute) Accidental acetaminophen overdose (Acute) Complex regional pain syndrome I Dental abscess (Acute) Facial cellulitis (Acute) Anxiety (Chronic) Depression (Chronic) Medical History (Updated 04/29/24 @ 12:38 by Valerie Singer MD) History of bipolar disorder Shoulder dislocation Horseshoe kidney PTSD (post-traumatic stress disorder) 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 Espinosa Status post total shoulder arthroplasty S/P insertion of spinal cord stimulator subsequently removed Status post bone graft Family History Other Bipolar disorder Colorectal cancer Social History Smoking Status: Current some day smoker Tobacco Type: E-cigarettes / Vaping Second Hand Exposure: No; Do You Dip or Chew Tobacco: No; Hx Alcohol Use: Yes Alcohol type: wine Hx Substance Use: No Preferred Language: Romansh Communication Ability: Effective Visual Impairment: No Limitations Rigger Apprentice Required: No Beliefs That Will Affect Care: None Current Living Situation: Spouse Feels Safe at Home: Yes Assistive Devices: None Allergies Allergies Allergy/AdvReac Type Severity Reaction Status Date / Time tramadol Allergy Intermediate Hives Verified 04/18/24 15:02 latex Allergy Mild IF ON SKIN Verified 04/18/24 15:02 TOO LONG--ITCHY RASH cefdinir Allergy Unknown Tachycardia Verified 04/18/24 15:02 and Rash Home Meds Home Medications Medication Instructions Recorded Confirmed diphenhydramine HCl 25 mg capsule 25 mg PO HS PRN Allergy/Sleep 04/29/24 04/29/24 (Benadryl) oxycodone 5 mg tablet 10 mg PO Q4H PRN pain 04/29/24 04/29/24 Previous Rx's Medication Instructions Recorded famotidine 20 mg tablet (Pepcid) 20 mg PO DAILY #30 tabs 04/11/24 ibuprofen 600 mg tablet 600 mg PO Q8H PRN pain #30 tabs 04/11/24 Results & Data (ED) Vital Signs Vital Signs - 24 hr 04/29/24 08:12 04/29/24 08:42 04/29/24 08:42 Temperature 36.8 C Temperature Source Temporal Artery Scan Pulse Rate 150 H 142 H 132 H Pulse Rhythm Regular Respiratory Rate 24 30 H 25 H Respiratory Effort / Characteristics Non-Labored Respiratory Depth Normal Respiratory Pattern Regular Blood Pressure 123/76 87/68 L Blood Pressure Mean 91 74 Pulse Oximetry 98 99 100 Oxygen Delivery Method Room Air Room Air Sepsis Recent Fever Within 48 Hours Yes Sepsis New/Unexplained Change in Mental Status N/A Sepsis Action Taken by Nursing Physician Notified 04/29/24 09:02 04/29/24 09:18 04/29/24 09:24 Temperature 37.7 C H Temperature Source Oral Pulse Rate 123 H Pulse Rhythm Respiratory Rate Respiratory Effort / Characteristics Respiratory Depth Respiratory Pattern Blood Pressure 122/95 Blood Pressure Mean 104 Pulse Oximetry Oxygen Delivery Method Sepsis Recent Fever Within 48 Hours Sepsis New/Unexplained Change in Mental Status Sepsis Action Taken by Nursing 04/29/24 09:30 04/29/24 10:00 04/29/24 10:30 Temperature Temperature Source Pulse Rate 124 H 121 H 120 H Pulse Rhythm Respiratory Rate 27 H 21 Respiratory Effort / Characteristics Respiratory Depth Respiratory Pattern Blood Pressure 135/88 120/87 125/84 Blood Pressure Mean 103 98 99 Pulse Oximetry 100 99 99 Oxygen Delivery Method Sepsis Recent Fever Within 48 Hours Sepsis New/Unexplained Change in Mental Status Sepsis Action Taken by Nursing 04/29/24 10:45 04/29/24 11:00 04/29/24 11:15 Temperature Temperature Source Pulse Rate 107 H 102 H 107 H Pulse Rhythm Respiratory Rate 16 22 22 Respiratory Effort / Characteristics Respiratory Depth Respiratory Pattern Blood Pressure 106/86 99/64 L 117/84 Blood Pressure Mean 90 82 96 Pulse Oximetry 100 100 100 Oxygen Delivery Method Sepsis Recent Fever Within 48 Hours Sepsis New/Unexplained Change in Mental Status Sepsis Action Taken by Nursing 04/29/24 11:45 Temperature Temperature Source Pulse Rate 105 H Pulse Rhythm Respiratory Rate 17 Respiratory Effort / Characteristics Respiratory Depth Respiratory Pattern Blood Pressure 121/76 Blood Pressure Mean 94 Pulse Oximetry 100 Oxygen Delivery Method Sepsis Recent Fever Within 48 Hours Sepsis New/Unexplained Change in Mental Status Sepsis Action Taken by Nursing Laboratory Data 04/29/24 08:47 04/29/24 08:47 Lab Results 04/29/24 04/29/24 04/29/24 Range/Units 08:47 08:55 09:03 WBC 11.96 H (4.8-10.8) K/ul RBC 4.10 L (4.20-5.40) M/uL Hgb 12.3 (12.0-16.0) g/dl Hct 36.2 L (37.0-47.0) % MCV 88.3 (80.0-100.0) fL MCH 30.0 (25.0-34.0) pg MCHC 34.0 (32.0-36.0) g/dL RDW Std Deviation 42.5 (36.4-46.3) fL RDW Coeff of Klaudia 13.2 (11.5-14.5) % Plt Count 384 (130-400) K/uL MPV 10.4 (9.4-12.4) fL Immature Gran % (Auto) 0.3 % Neut % (Auto) 61.3 % Lymph % (Auto) 29.8 % Nance % (Auto) 7.4 % Eos % (Auto) 0.7 % Baso % (Auto) 0.5 % Neut # (Auto) 7.34 H (1.40-6.50) K/uL Lymph # (Auto) 3.56 H (1.20-3.40) K/uL Nance # (Auto) 0.89 H (0.11-0.59) K/uL Eos # (Auto) 0.08 (0.00-0.50) K/uL Baso # (Auto) 0.06 (0.00-0.20) K/uL Immature Gran # (Auto) 0.03 (0.01-0.20) K/uL D-Dimer < 190 (0-500) ug/L FEU VBG pH 7.52 H (7.36-7.41) VBG pCO2 28 L (38-50) mmHg VBG pO2 52 mmHg VBG HCO3 23 mmol/L VBG O2 Saturation 90.1 % VBG Base Excess 1.1 mEq/L Sodium 137 (136-145) mmol/L Potassium 3.2 L (3.5-5.1) mmol/L Chloride 102 (98-107) mmol/L Carbon Dioxide 23 (21-32) mmol/L Anion Gap 12 H (3-11) BUN 10 (6-23) mg/dl Creatinine 0.65 (0.6-1.2) mg/dl Est Cr Clr Drug Dosing 106.3 ml/min Est GFR ( Amer) 145.0 ml/min Est GFR (Non-Af Amer) 125.1 ml/min BUN/Creatinine Ratio 15.4 (10-20) Glucose 131 H (70-99(Fasting)) mg/dl Lactate 5.1 H* (0.4-2.0) mmol/L Calcium 9.8 (8.6-10.3) mg/dl Magnesium 1.7 (1.7-2.4) mg/dl Total Bilirubin 0.4 (0.2-1.0) mg/dl Direct Bilirubin 0.1 (0-0.2) mg/dl AST 12 L (13-39) U/L ALT 8 (7-52) U/L Alkaline Phosphatase 52 (34-104) U/L Troponin I High Sens 2.5 (0-14) pg/ml Total Protein 7.9 (6.0-8.3) gm/dl Albumin 4.9 (3.4-5.0) gm/dl Procalcitonin < 0.02 (0-0.5) ng/ml TSH 6.064 H (0.300-4.500) uIu/ml HCG, Qual Negative (Negative) Urine Color Yellow Urine Appearance Turbid A (Clear) Urine pH 6.0 (4.5-7.5) Ur Specific [place] 1.014 (1.000-1.030) Urine Protein Negative (Negative) Urine Glucose (UA) Negative (Negative) Urine Ketones Negative (Negative) Urine Blood Negative (Negative) Urine Nitrite Negative (Negative) Urine Bilirubin Negative (Negative) Urine Urobilinogen Negative (Negative) Ur Leukocyte Esterase Trace H (Negative) Urine WBC (Auto) 6-10 H (0-5) /hpf Urine RBC (Auto) 0-2 (0-2) /hpf U Hyaline Cast (Auto) 0-2 (0-2) /lpf U Epithel Cells (Auto) 3-5 H (0-2) /hpf Urine Bacteria (Auto) None Seen (None Seen) Adenovirus (PCR) (NotDetected) B. pertussis DNA (PCR) (NotDetected) B.parapertussis DNA PCR (NotDetected) C. pneumoniae DNA (PCR) (NotDetected) Coronavirus OC43 (PCR) (NotDetected) Coronavirus HKU1 (PCR) (NotDetected) Coronavirus 229E (PCR) (NotDetected) SARS-CoV-2 (PCR) (NotDetected) Coronavirus NL63 (PCR) (NotDetected) Human Metapneumovir PCR (NotDetected) Influenza Type A (PCR) (NotDetected) Influenza Type B (PCR) (NotDetected) M. pneumoniae (PCR) (NotDetected) Parainfluenza 1 (PCR) (NotDetected) Parainfluenza 2 (PCR) (NotDetected) Parainfluenza 3 (PCR) (NotDetected) Parainfluenza 4 (PCR) (NotDetected) RSV (PCR) (NotDetected) Entero/Rhino (PCR) (NotDetected) 04/29/24 Range/Units 10:40 WBC (4.8-10.8) K/ul RBC (4.20-5.40) M/uL Hgb (12.0-16.0) g/dl Hct (37.0-47.0) % MCV (80.0-100.0) fL MCH (25.0-34.0) pg MCHC (32.0-36.0) g/dL RDW Std Deviation (36.4-46.3) fL RDW Coeff of Klaudia (11.5-14.5) % Plt Count (130-400) K/uL MPV (9.4-12.4) fL Immature Gran % (Auto) % Neut % (Auto) % Lymph % (Auto) % Nance % (Auto) % Eos % (Auto) % Baso % (Auto) % Neut # (Auto) (1.40-6.50) K/uL Lymph # (Auto) (1.20-3.40) K/uL Nance # (Auto) (0.11-0.59) K/uL Eos # (Auto) (0.00-0.50) K/uL Baso # (Auto) (0.00-0.20) K/uL Immature Gran # (Auto) (0.01-0.20) K/uL D-Dimer (0-500) ug/L FEU VBG pH (7.36-7.41) VBG pCO2 (38-50) mmHg VBG pO2 mmHg VBG HCO3 mmol/L VBG O2 Saturation % VBG Base Excess mEq/L Sodium (136-145) mmol/L Potassium (3.5-5.1) mmol/L Chloride (98-107) mmol/L Carbon Dioxide (21-32) mmol/L Anion Gap (3-11) BUN (6-23) mg/dl Creatinine (0.6-1.2) mg/dl Est Cr Clr Drug Dosing ml/min Est GFR ( Amer) ml/min Est GFR (Non-Af Amer) ml/min BUN/Creatinine Ratio (10-20) Glucose (70-99(Fasting)) mg/dl Lactate 0.9 (0.4-2.0) mmol/L Calcium (8.6-10.3) mg/dl Magnesium (1.7-2.4) mg/dl Total Bilirubin (0.2-1.0) mg/dl Direct Bilirubin (0-0.2) mg/dl AST (13-39) U/L ALT (7-52) U/L Alkaline Phosphatase (34-104) U/L Troponin I High Sens (0-14) pg/ml Total Protein (6.0-8.3) gm/dl Albumin (3.4-5.0) gm/dl Procalcitonin (0-0.5) ng/ml TSH (0.300-4.500) uIu/ml HCG, Qual (Negative) Urine Color Urine Appearance (Clear) Urine pH (4.5-7.5) Ur Specific [place] (1.000-1.030) Urine Protein (Negative) Urine Glucose (UA) (Negative) Urine Ketones (Negative) Urine Blood (Negative) Urine Nitrite (Negative) Urine Bilirubin (Negative) Urine Urobilinogen (Negative) Ur Leukocyte Esterase (Negative) Urine WBC (Auto) (0-5) /hpf Urine RBC (Auto) (0-2) /hpf U Hyaline Cast (Auto) (0-2) /lpf U Epithel Cells (Auto) (0-2) /hpf Urine Bacteria (Auto) (None Seen) Adenovirus (PCR) Not Detected (NotDetected) B. pertussis DNA (PCR) Not Detected (NotDetected) B.parapertussis DNA PCR Not Detected (NotDetected) C. pneumoniae DNA (PCR) Not Detected (NotDetected) Coronavirus OC43 (PCR) Not Detected (NotDetected) Coronavirus HKU1 (PCR) Not Detected (NotDetected) Coronavirus 229E (PCR) Not Detected (NotDetected) SARS-CoV-2 (PCR) Not Detected (NotDetected) Coronavirus NL63 (PCR) Not Detected (NotDetected) Human Metapneumovir PCR Not Detected (NotDetected) Influenza Type A (PCR) Not Detected (NotDetected) Influenza Type B (PCR) Not Detected (NotDetected) M. pneumoniae (PCR) Not Detected (NotDetected) Parainfluenza 1 (PCR) Not Detected (NotDetected) Parainfluenza 2 (PCR) Not Detected (NotDetected) Parainfluenza 3 (PCR) Not Detected (NotDetected) Parainfluenza 4 (PCR) Not Detected (NotDetected) RSV (PCR) Not Detected (NotDetected) Entero/Rhino (PCR) Not Detected (NotDetected) Administered Medications Discontinued Medications Fentanyl Citrate (Fentanyl Citrate Pf 100 Mcg/2 Ml Vial) 50 mcg IV NOW STA Stop: 04/29/24 08:45 Last Admin: 04/29/24 08:49 Dose: 50 mcg Documented By: YONI Sodium Chloride (Nss) 1,000 mls @ 999 mls/hr IV .Q1H1M JOSE Stop: 04/29/24 10:45 Last Infusion: 04/29/24 10:59 Dose: Infused Documented By: Admin: 04/29/24 09:36 Dose: 999 mls/hr Documented By: Infusion: 04/29/24 09:36 Dose: Infused Documented By: Admin: 04/29/24 08:46 Dose: 999 mls/hr Documented By: TREVER Piperacillin Sod/Tazobactam Sod (Zosyn) 4.5 gm in 100 mls @ 200 mls/hr IV NOW ONE Stop: 04/29/24 09:53 Last Infusion: 04/29/24 10:04 Dose: Infused Documented By: Admin: 04/29/24 09:36 Dose: 200 mls/hr Documented By: TREVER Sodium Chloride (Nss) 1,000 mls @ 999 mls/hr IV .Q1H1M ONE Stop: 04/29/24 11:54 Last Infusion: 04/29/24 11:49 Dose: Infused Documented By: Admin: 04/29/24 10:59 Dose: 999 mls/hr Documented By: TREVER Ioversol (Optiray 320 100ml) 94 ml IV ONCE ONE Stop: 04/29/24 09:41 Last Admin: 04/29/24 09:40 Dose: 94 ml Documented By: SALVATORE Ketorolac Tromethamine (Ketorolac Tromethamine 15 Mg/Ml Vial) 15 mg IV NOW STA Stop: 04/29/24 09:22 Last Admin: 04/29/24 09:37 Dose: 15 mg Documented By: TREVER Lorazepam (Lorazepam 1 Mg/1 Ml Syr Ed Inj Use) 0.5 mg IV ONE STA Stop: 04/29/24 09:41 Last Admin: 04/29/24 09:43 Dose: 0.5 mg Documented By: TREVER Ondansetron HCl (Ondansetron Inj 2 Mg/Ml 2 Ml Vial) 4 mg IV NOW STA Stop: 04/29/24 08:45 Last Admin: 04/29/24 08:49 Dose: 4 mg Documented By: YONI Imaging Data Radiologist's Impression: Chest X-Ray 04/29/24 08:35 SINGLE VIEW CHEST CLINICAL HISTORY: Sepsis FINDINGS: An AP, portable, upright chest radiograph is compared to study dated 12/13/2022. The cardiomediastinal silhouette is unremarkable. The lungs and pleural spaces are clear. No pneumothorax is seen. The bony thorax is grossly intact. An intrathecal lead has been removed as compared to previous. IMPRESSION: No active disease in the chest. ACT 112: Negative or not required by law. Electronically signed by: Enrrique Prieto M.D. 04/29/2024 9:09 AM Abdomen/Pelvis CT 04/29/24 08:58 CT SCAN OF THE ABDOMEN AND PELVIS WITH IV CONTRAST CLINICAL HISTORY: Right upper quadrant abdominal pain. Nausea and vomiting. Diarrhea. COMPARISON STUDY: Abdominal CT dated 06/06/2020. TECHNIQUE: Following the IV administration of 94 cc of Optiray 320, CT scan of the abdomen and pelvis is performed from the lung bases to the proximal femora. Images are reviewed in the axial, sagittal, and coronal planes. IV contrast was administered without complication. A dose lowering technique was utilized adhering to the principles of ALARA. CT DOSE: 388.9 mGy.cm FINDINGS: Lung bases: The heart is normal in size and without pericardial effusion. The lung bases are clear. Liver: The contrast-enhanced liver is normal in size, contour, and attenuation. Findings infiltration is seen adjacent to the falciform ligament. There is no intrahepatic biliary ductal dilatation. The hepatic veins and portal veins are patent. Gallbladder: Unremarkable. Spleen: Normal in size and attenuation. Pancreas: Unremarkable. Adrenal glands: Unremarkable. Kidneys: A horseshoe kidney is noted. The contrast enhanced renal moieties are normal in size and without hydronephrosis. The kidneys enhance symmetrically. Abdominal vasculature: The abdominal aorta is normal in course and caliber. Bowel: There is moderate colonic fecal retention. No bowel obstruction is seen. The appendix is 1 visualized and normal. Peritoneum: There is no intraperitoneal free air or abdominal ascites. Lymphadenopathy: None. Pelvic viscera: The bladder wall appears thickened. The uterus and adnexa are normal as visualized noting bilateral ovarian follicles. Skeletal structures: No lytic or blastic lesions are seen. IMPRESSION: 1. The bladder wall appears thickened. Correlate with clinical findings and urinalysis. 2. Normal appendix. 3. Horseshoe kidney is incidentally noted. 4. Additional findings as above. ACT 112: Negative or not required by law. Electronically signed by: Enrrique Prieto M.D. 04/29/2024 12:13 PM Discharge Plan Visit Data Chief Complaint: Tachycardia Stated Complaint: TACHYCARDIA (HR 170s), FEVER, SHAKING ED Provider: Valerie Singer Discharge Problem: SIRS (systemic inflammatory response syndrome), Sinus tachycardia, Abdominal pain, Acute hypokalemia, Elevated lactic acid level Forms Stand Alone Forms: My [employer] Prescriptions Prescriptions: No Action ibuprofen 600 mg tablet 600 mg PO Q8H PRN (Reason: pain) Qty: 30 0RF famotidine [Pepcid] 20 mg tablet 20 mg PO DAILY Qty: 30 0RF diphenhydramine HCl [Benadryl] 25 mg Capsule 25 mg PO HS PRN (Reason: Allergy/Sleep) oxycodone 5 mg tablet 10 mg PO Q4H PRN (Reason: pain) Referrals Referrals: Cande Chavarria MD [Primary Care Provider] -
[2024-04-29] MEDS: ONDANSETRON INJ 2 MG/ML 2 ML VIAL IV STA (08:49)
[2024-04-29] MEDS: fentaNYL citrate PF 100 MCG/2 ML VIAL IV STA (08:49)
[2024-04-29 09:02] LABS: Basophils # (auto) 0.06 K/uL (0.00-0.20); Basophils % (auto) 0.5 %; Eosinophils # (auto) 0.08 K/uL (0.00-0.50); Eosinophils % (auto) 0.7 %; Hematocrit (blood only) 36.2 % (37.0-47.0); Hemoglobin 12.3 g/dl (12.0-16.0); Immature Granulocytes # (auto) 0.03 K/uL (0.01-0.20); Immature Granulocytes % (auto) 0.3 %; Lymphocytes # (auto) 3.56 K/uL (1.20-3.40); Lymphocytes % (auto) 29.8 %; Mean Corpuscular Volume 88.3 fL (80.0-100.0); Mean Platelet Volume 10.4 fL (9.4-12.4); Monocytes # (auto) 0.89 K/uL (0.11-0.59); Monocytes % (auto) 7.4 %; Neutrophils # (auto) 7.34 K/uL (1.40-6.50); Neutrophils % (auto) 61.3 %; Platelet Count 384 K/uL (130-400); RDW Coefficient of Variation 13.2 % (11.5-14.5); RDW Standard Deviation 42.5 fL (36.4-46.3); White Blood Count 11.96 K/ul (4.8-10.8)
--- NOTE | 2024-04-29 09:11 | XRay Report ---
SINGLE VIEW CHEST CLINICAL HISTORY: Sepsis FINDINGS: An AP, portable, upright chest radiograph is compared to study dated 12/13/2022. The cardiome diastinal silhouette is unremarkable. The lungs and pleural spaces are clear. No pneumothorax is seen . The bony thorax is grossly intact. An intrathecal lead has been removed as compared to previous. IMPRESSION: No active disease in the chest. ACT 112: Negative or not required by law. Electronically signed by: Enrrique Prieto M.D. 04/29/2024 9:09 AM
[2024-04-29 09:18] LABS: Albumin Level 4.9 gm/dl (3.4-5.0); BUN Creatinine Ratio 15.4 (10-20); Bilirubin Direct 0.1 mg/dl (0-0.2); Bilirubin,Total 0.4 mg/dl (0.2-1.0); Calcium 9.8 mg/dl (8.6-10.3); Creatinine Clr Calc Pharmacy 106.3 ml/min; Est GFR (Non-African American) 125.1 ml/min; Magnesium 1.7 mg/dl (1.7-2.4); Potassium 3.2 mmol/L (3.5-5.1); Total Protein 7.9 gm/dl (6.0-8.3)
[2024-04-29 09:22] LABS: Appearance Urine Turbid (Clear); Bacteria Urine Automated None Seen (None Seen); Bilirubin Urine Negative (Negative); Blood Urine Negative (Negative); Cast Urine Automated 0-2 /lpf (0-2); Color Urine Yellow; Glucose Urine UA Negative (Negative); Ketones Urine Negative (Negative); Leukocyte Esterase Urine Trace (Negative); Nitrite Urine Negative (Negative); Protein Urine Negative (Negative); RBC Urine Automated 0-2 /hpf (0-2); Specific Gravity Urine 1.014 (1.000-1.030); Urobilinogen Urine Negative (Negative)
[2024-04-29 09:24] LABS: Base Excess VBG 1.1 mEq/L; HCO3 VBG 23 mmol/L; Oxygen Saturation VBG 90.1 %; PCO2 VBG 28 mmHg (38-50); PO2 VBG 52 mmHg; pH VBG 7.52 (7.36-7.41)
[2024-04-29 09:25] LABS: Troponin I High Sensitivity 2.5 pg/ml (0-14)
[2024-04-29] MEDS: PIPERACILLIN/TAZOBACTAM 4.5 GM/100 ML BAG IV ONE (09:36)
[2024-04-29] MEDS: KETOROLAC TROMETHAMINE 15 MG/ML VIAL IV STA (09:37)
[2024-04-29] MEDS: OPTIRAY 320 100ml IV ONE ×2 (09:40→19:51)
[2024-04-29 09:42] LABS: D Dimer < 190 ug/L FEU (0-500)
[2024-04-29] MEDS: LORazepam 1 MG/1 ML SYR ED Inj Use IV STA (09:43)
[2024-04-29 09:58] LABS: Pregnancy Test, Serum Negative (Negative)
[2024-04-29] MEDS: SODIUM CHLORIDE 0.9% 1,000 ML IV ONE (10:59)
[2024-04-29 11:53] LABS: Adenovirus PCR Not Detected (NotDetected); Bordetella parapertussis PCR Not Detected (NotDetected); Bordetella pertussis PCR Not Detected (NotDetected); Chlamydia pneumoniae PCR Not Detected (NotDetected); Coronavirus 229E PCR Not Detected (NotDetected); Coronavirus CoV-2 (COVID19)PCR Not Detected (NotDetected); Coronavirus HKU1 PCR Not Detected (NotDetected); Coronavirus NL63 PCR Not Detected (NotDetected); Coronavirus OC43PCR Not Detected (NotDetected); Human Metapneumovirus PCR Not Detected (NotDetected); Influenza A PCR Not Detected (NotDetected); Influenza B PCR Not Detected (NotDetected); Mycoplasma pneumoniae PCR Not Detected (NotDetected); Parainfluenza Virus 1 PCR Not Detected (NotDetected); Parainfluenza Virus 2 PCR Not Detected (NotDetected); Parainfluenza Virus 3 PCR Not Detected (NotDetected); Parainfluenza Virus 4 PCR Not Detected (NotDetected); Respiratory Syncytial VirusPCR Not Detected (NotDetected); Rhinovirus/Enterovirus PCR Not Detected (NotDetected)
[2024-04-29 12:05] LABS: Thyroid Stimulating Hormone 6.064 uIu/ml (0.300-4.500)
--- NOTE | 2024-04-29 12:16 | CT Scan Report ---
CT SCAN OF THE ABDOMEN AND PELVIS WITH IV CONTRAST CLINICAL HISTORY: Right upper quadrant abdominal pain. Nausea and vomiting. Diarrhea. COMPARISON STUDY: Abdominal CT dated 06/06/2020. TECHNIQUE: Following the IV administration of 94 cc of Optiray 320, CT scan of the abdomen and pelvi s is performed from the lung bases to the proximal femora. Images are reviewed in the axial, sagittal , and coronal planes. IV contrast was administered without complication. A dose lowering technique wa s utilized adhering to the principles of ALARA. CT DOSE: 388.9 mGy.cm FINDINGS: Lung bases: The heart is normal in size and without pericardial effusion. The lung bases are clear. Liver: The contrast-enhanced liver is normal in size, contour, and attenuation. Findings infiltration is seen adjacent to the falciform ligament. There is no intrahepatic biliary ductal dilatation. The hepatic veins and portal veins are patent. Gallbladder: Unremarkable. Spleen: Normal in size and attenuation. Pancreas: Unremarkable. Adrenal glands: Unremarkable. Kidneys: A horseshoe kidney is noted. The contrast enhanced renal moieties are normal in size and wit hout hydronephrosis. The kidneys enhance symmetrically. Abdominal vasculature: The abdominal aorta is normal in course and caliber. Bowel: There is moderate colonic fecal retention. No bowel obstruction is seen. The appendix is 1 vi sualized and normal. Peritoneum: There is no intraperitoneal free air or abdominal ascites. Lymphadenopathy: None. Pelvic viscera: The bladder wall appears thickened. The uterus and adnexa are normal as visualized no ting bilateral ovarian follicles. Skeletal structures: No lytic or blastic lesions are seen. IMPRESSION: 1. The bladder wall appears thickened. Correlate with clinical findings and urinalysis. 2. Normal appendix. 3. Horseshoe kidney is incidentally noted. 4. Additional findings as above. ACT 112: Negative or not required by law. Electronically signed by: Enrrique Prieto M.D. 04/29/2024 12:13 PM
--- NOTE | 2024-04-29 12:44 | History & Physical Report ---
Date of Service April 29, 2024 Assessment & Plan (1) Severe sepsis: (2) UTI (urinary tract infection): (3) Diarrhea: (4) Abdominal pain: Plan: This is a 23-year-old female with PMH of connective tissue disorder, POTS, h/o spinal cord stimulator removed in Sep 2023, complex regional pain syndrome and other medical problems below who presents from home with ongoing low-grade fever and tachycardia over the past week and was found to meet severe sepsis criteria. Fever, tachycardia, diarrhea, RUQ pain x 1 week Appear acutely ill and frail on exam WBC 11.96, lactate 5.1 -> 0.9 following 3L NSS in ED Likely 2/2 urinary source with bladder wall thickening on CT abd/pelvis vs. C diff given recent Clinda, Augmentin courses Also in setting of recent dental abscess I&D s/p 2 abx CXR unremarkable Considered gall bladder pathology given RUQ pain but US abd without sonographic abnormality, no gallstones are seen Added tick serology, urine culture Follow blood culture Continue empiric vanco (mrsa screen pending), Zosyn Start empiric PO Vanco due to severe diarrheal illness, follow c diff and stool cultures PRN Tylenol, Toradol Maintenance fluids ID consult (5) Dental abscess: Plan: H/o R palatal abscess I&D and tooth extraction by Dr. Espinosa on 04/10/2024 Completed 7d clinda and 7 d Augmentin course following Area appears to be healing well, no signs of overt infection on exam but given severity of illness and some intermittent TTP of mouth will obtain CT face once able to tolerate add'l contrast dye (6) Acute hypokalemia: Plan: Replaced. Monitor on daily BMP (7) History of bipolar disorder: Plan: Stable. Not currently on medication (8) Malnutrition: Plan: BMI 17.8, appeared malnourished. Added IV thiamine, folic acid supplementation DVT Ppx: Teds, early ambulation Code status: FULL PCP: Deon Dispo: Admitted to PCU Patient seen in collaboration with Dr. Oseguera. Please see addendum. I spent a total of 75 minutes coordinating, documenting, and providing care for this patient excluding time spent in the performance of separately billed services. History of Present Illness Chief Complaint: low grade fever, tachycardia Primary Care Provider: Cande Chavarria MD This is a 23-year-old female with PMH of connective tissue disorder, POTS, h/o spinal cord stimulator removed in Sep 2023, complex regional pain syndrome and other medical problems below who presents from home with ongoing low-grade fever and tachycardia over the past week. Patient underwent right palatal abscess I&D and tooth extraction by Dr. Espinosa on 04/10/2024. Completed a 7-day course of clindamycin at that time. Then presented to [facility] ED for facial pain and there was concern for infection and was prescribed an additional 7-day course of Augmentin, which she completed on 04/22. After completing antibiotics, patient developed persistent diarrhea which she has had for the past week. 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 Also endorses low-grade fever, dull headache, tachycardiae made worse with any type of movement including ambulation to the bathroom. With any walking or exertion patient feels presyncopal. Has also developed right upper quadrant pain that is sharp and worse with exertion. Also having right lower quadrant discomfort. Worked last night and when she woke up today felt extremely weak, tachycardic and like she is going to pass out with any type of movement. Also endorsed shortness of breath for the first time, prompting visit to ED for further evaluation. Patient denies any new medications or history of issues with thyroid, gallbladder or liver. No recent known tick bites. Denies any illicit substances. No visual changes, chest pain, congestion or cough, nausea, vomiting, dysuria, hematuria or constipation. Allergies Allergy/AdvReac Type Severity Reaction Status Date / Time tramadol Allergy Intermediate Hives Verified 04/18/24 15:02 latex Allergy Mild IF ON SKIN Verified 04/18/24 15:02 TOO LONG--ITCHY RASH cefdinir Allergy Unknown Tachycardia Verified 04/18/24 15:02 and Rash Home Medications Medication Instructions Recorded Confirmed Type famotidine 20 mg tablet (Pepcid) 20 mg PO DAILY #30 tabs 04/11/24 04/29/24 Rx ibuprofen 600 mg tablet 600 mg PO Q8H PRN pain #30 tabs 04/11/24 04/29/24 Rx diphenhydramine HCl 25 mg capsule 25 mg PO HS PRN Allergy/Sleep 04/29/24 04/29/24 History (Benadryl) oxycodone 5 mg tablet 10 mg PO Q4H PRN pain 04/29/24 04/29/24 History Past Med/Surg History Problem List (Updated 04/29/24 @ 15:56 by Crystal Salinas PA-C) UTI (urinary tract infection) Malnutrition Diarrhea Severe sepsis Acute hypokalemia (Acute) Abdominal pain (Acute) Sinus tachycardia (Acute) Complex regional pain syndrome I Dental abscess (Acute) Facial cellulitis (Acute) Anxiety (Chronic) Depression (Chronic) Medical History (Updated 04/29/24 @ 15:56 by Crystal Salinas PA-C) History of bipolar disorder Shoulder dislocation Horseshoe kidney PTSD (post-traumatic stress disorder) 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 Espinosa Status post total shoulder arthroplasty S/P insertion of spinal cord stimulator subsequently removed Status post bone graft Family History Other Bipolar disorder Colorectal cancer Social History Smoking Status: Never smoker Second Hand Exposure: No; Hx Alcohol Use: No Hx Substance Use: No Preferred Language: Welsh Communication Ability: Effective Visual Impairment: No Limitations Early Years Teacher Required: No Beliefs That Will Affect Care: None Current Living Situation: Spouse Feels Safe at Home: Yes Safety Concerns: Feels Safe At This Time Assistive Devices: None Review of Systems Review of Systems: At least ten systems reviewed and negative except as noted in the HPI. Physical Exam Physical Exam: General Appearance: WD/WN, vitals as above, appears acutely ill, thin, anxious Head: normocephalic, atraumatic Eyes: normal inspection, PERRL, conjunctivae normal, anicteric sclerae ENT: external ear and nose normal, oropharynx normal Neck: normal visual inspection, trachea midline, no thyromegaly Respiratory: normal respiratory effort, lungs clear to auscultation, no wheeze, rales, rhonchi. No accessory muscle use Cardiovascular: tachycardic rate, regular rhythm, normal peripheral pulses, no BLE edema. Vessels: no JVD Chest: normal inspection of chest Abdomen/GI: normal bowel sounds, soft, +RUQ and RLQ pain, no hepatosplenomegaly Extremities/Musculoskeletal: no cyanosis or clubbing, extremities motor strength 5/5 Neurologic: PERRL, EOMI, accommodation nl, no face palsy, no dysarthria, CN's II-XI intact bilaterally and moves all extremities Psychiatric: A+Ox3, + anxious Skin: no rashes, normal color, warm/dry Results & Data Results & Data Vital Signs (Past 12 Hours) Vital Signs Temp Pulse Resp BP Pulse Ox O2 Del Method 04/29/24 11:45 105 H 17 121/76 100 04/29/24 11:15 107 H 22 117/84 100 04/29/24 11:00 102 H 22 99/64 L 100 04/29/24 10:45 107 H 16 106/86 100 04/29/24 10:30 120 H 21 125/84 99 04/29/24 10:00 121 H 120/87 99 04/29/24 09:30 124 H 27 H 135/88 100 04/29/24 09:24 122/95 04/29/24 09:18 37.7 C H 04/29/24 09:02 123 H 04/29/24 08:42 132 H 25 H 87/68 L 100 04/29/24 08:42 142 H 30 H 99 Room Air 04/29/24 08:12 36.8 C 150 H 24 123/76 98 Room Air Laboratory Results Short CBC 04/29/24 Range/Units 08:47 WBC 11.96 H (4.8-10.8) K/ul Hgb 12.3 (12.0-16.0) g/dl Hct 36.2 L (37.0-47.0) % Plt Count 384 (130-400) K/uL BMP 04/29/24 08:47 Sodium 137 Potassium 3.2 L Chloride 102 Carbon Dioxide 23 BUN 10 Creatinine 0.65 Glucose 131 H Calcium 9.8 Liver Function 04/29/24 Range/Units 08:47 Total Bilirubin 0.4 (0.2-1.0) mg/dl Direct Bilirubin 0.1 (0-0.2) mg/dl AST 12 L (13-39) U/L ALT 8 (7-52) U/L Alkaline Phosphatase 52 (34-104) U/L Albumin 4.9 (3.4-5.0) gm/dl Urine 04/29/24 Range/Units 08:55 Urine Color Yellow Urine Appearance Turbid A (Clear) Urine pH 6.0 (4.5-7.5) Ur Specific [place] 1.014 (1.000-1.030) Urine Protein Negative (Negative) Urine Glucose (UA) Negative (Negative) Diagnostic Findings Chest X-Ray 04/29/24 08:35 SINGLE VIEW CHEST CLINICAL HISTORY: Sepsis FINDINGS: An AP, portable, upright chest radiograph is compared to study dated 12/13/2022. The cardiomediastinal silhouette is unremarkable. The lungs and pleural spaces are clear. No pneumothorax is seen. The bony thorax is grossly intact. An intrathecal lead has been removed as compared to previous. IMPRESSION: No active disease in the chest. ACT 112: Negative or not required by law. Electronically signed by: Enrrique Prieto M.D. 04/29/2024 9:09 AM Abdomen/Pelvis CT 04/29/24 08:58 CT SCAN OF THE ABDOMEN AND PELVIS WITH IV CONTRAST CLINICAL HISTORY: Right upper quadrant abdominal pain. Nausea and vomiting. Diarrhea. COMPARISON STUDY: Abdominal CT dated 06/06/2020. TECHNIQUE: Following the IV administration of 94 cc of Optiray 320, CT scan of the abdomen and pelvis is performed from the lung bases to the proximal femora. Images are reviewed in the axial, sagittal, and coronal planes. IV contrast was administered without complication. A dose lowering technique was utilized adhering to the principles of ALARA. CT DOSE: 388.9 mGy.cm FINDINGS: Lung bases: The heart is normal in size and without pericardial effusion. The lung bases are clear. Liver: The contrast-enhanced liver is normal in size, contour, and attenuation. Findings infiltration is seen adjacent to the falciform ligament. There is no intrahepatic biliary ductal dilatation. The hepatic veins and portal veins are patent. Gallbladder: Unremarkable. Spleen: Normal in size and attenuation. Pancreas: Unremarkable. Adrenal glands: Unremarkable. Kidneys: A horseshoe kidney is noted. The contrast enhanced renal moieties are normal in size and without hydronephrosis. The kidneys enhance symmetrically. Abdominal vasculature: The abdominal aorta is normal in course and caliber. Bowel: There is moderate colonic fecal retention. No bowel obstruction is seen. The appendix is 1 visualized and normal. Peritoneum: There is no intraperitoneal free air or abdominal ascites. Lymphadenopathy: None. Pelvic viscera: The bladder wall appears thickened. The uterus and adnexa are normal as visualized noting bilateral ovarian follicles. Skeletal structures: No lytic or blastic lesions are seen. IMPRESSION: 1. The bladder wall appears thickened. Correlate with clinical findings and urinalysis. 2. Normal appendix. 3. Horseshoe kidney is incidentally noted. 4. Additional findings as above. ACT 112: Negative or not required by law. Electronically signed by: Enrrique Prieto M.D. 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 Patient reports that she was in her usual state of health before 5 days ago AUTO WINDER. 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 She reports that she could not breathe and also had palpitation w ith activity, both were better with rest. She reports fever since last 3 days, fever noted today morning was 100.5F at home, reports decreased appetite and multiple episodes of diarrhea since last 5 days and also reports 5 pounds of weight loss in this week. Reports nausea, denies vomiting, reports right-sided upper and lower abdominal pain since about 5 days. Denies pain or burning with passing urine. Patient reports he has been using Imodium to help with diarrhea. Severe sepsis likely secondary to UTI versus C. difficile, rule out dental infection as well. Patient denies /cough, sore throat. Of note, patient recently had dental procedure done in April 10 with with OMFS, was discharged on clindamycin for 7 days after which patient went to urgent care as she thought her infection is not better controlled and was discharged on additional 7 days of Augmentin. Her last dose of antibiotic was April 22. She started having diarrhea since last 5 days ago AUTO WINDER and was using Imodium to help with it. MRSA screen neg, follow blood culture, Get facial CT. OMFS consult after CT results if needed. Get tickborne serology. Follow. ID consult for severe sepsis, source unclear. Continue with IV Zosyn, p.o. vancomycin (empiric for c diff given circumstances). MRSA screen neg, no need for MRSA coverage. UDS pending. Hold imodium, follow stool PCR/C diff, use psyllium bid, use Pedialyte solution. c/w IVF. CTAP with concern of bladder wall thickening and Horseshoe kidney noted. Patient is aware of Horseshoe kidney. UA borderline suggestive of UTI, patient denies symptoms. Of note patient has recent antibiotic courses. Abdominal pain: Patient complains of right upper quadrant/right lower quadrant pain: Will get US RUQ. CTAP reviewed. RLQ pain likely secondary to possible UTI. Continue to monitor for improvement with ongoing treatment. Follow Stool PCR, C. difficile, hold imodium, use psylium and pedialyte solution. Malnourishment: Decreased appetite since last 5 days, BMI of 17.8, patient reports she eats fine but cannot put on weight. Dietitian consult. IV thiamine and IV folic acid. PO multivitamin. Continue with IV fluid. Clear liquid diet until US gallbladder results comes back, if no acute finding, then can advance diet as tolerated. On Exam : GENERAL: Alert and oriented x3. on RA, very lethargic and appears weak/frail/tired/sick. HEENT: No pallor, no icterus. Pupils equal, round and reactive to light. Oral mucosa dry. NECK: No JVD, no neck masses. HEART: S1 and S2 heard. Regular rate and rhythm. Tachycardia noted in 120s. No murmur, no gallop. RESPIRATORY SYSTEM: Normal AP diameter. No accessory muscle use. No wheezing, no crackles. ABDOMEN: Soft, bowel sounds present, RUQ and RLQ tender, no distention. CENTRAL NERVOUS SYSTEM: No facial droop. Speech is clear. Obeys simple commands. Moves extremities. EXTREMITIES: No edema, no erythema seen. I have seen and examined the patient and have discussed the case with the provider above. I agree with the assessment and plan as stated.
[2024-04-29 14:05] LABS: Amphetamines+Metham, Urine Neg (Neg); Barbiturates, Urine Neg (Neg); Benzodiazepine, Urine Neg (Neg); Cocaine, Urine Neg (Neg); Fentanyl, Urine Pos (Neg); MDMA (Ecstacy), Urine Neg (Neg); Marijuana, Urine Neg (Neg); Methadone, Urine Neg (Neg); Opiate, Urine Neg (Neg); Phencyclidine, Urine Neg (Neg)
[2024-04-29] MEDS: FLUCONAZOLE 50 MG TAB PO ONE (14:12)
[2024-04-29 14:14] LABS: T4 Free Thyroxine 0.77 ng/dl (0.61-1.60)
--- NOTE | 2024-04-29 15:00 | Ultrasound Report ---
ULTRASOUND RIGHT UPPER QUADRANT ABDOMEN CLINICAL HISTORY: Right upper quadrant abdominal pain. COMPARISON STUDY: Abdominal CT dated 04/29/2024. TECHNIQUE: Real-time, grayscale, and color flow sonography of the right upper quadrant of the abdomen was performed. Images are reviewed in the transverse and longitudinal planes. FINDINGS: Liver: The liver is normal in size and echotexture. There is no intrahepatic biliary ductal dilatatio n. The main portal vein is patent. Gallbladder: The gallbladder is normal in appearance. No gallstones are identified. There is no gallb ladder wall thickening or pericholecystic fluid. A sonographic Aguillon's sign is reportedly absent. Th e common bile duct measures up to 0.4 cm in diameter. Pancreas: Visualized portions of the pancreatic head and body are normal in appearance. The splenic v ein is patent. Right kidney: Horseshoe kidney is incidentally noted. The right renal moiety is normal in size and ec hotexture. There is no hydronephrosis. Ascites: None. IMPRESSION: No acute sonographic abnormality is identified in the right upper quadrant. No gallstones are seen. ACT 112: Negative or not required by law. Electronically signed by: Enrrique Prieto M.D. 04/29/2024 2:58 PM
[2024-04-29] MEDS: THIAMINE HCL 200 MG in SODIUM CHLORIDE 0.9% 50 ML IV STA (15:22)
[2024-04-29] MEDS: FOLIC ACID 1 MG in SYRINGE 9.8 ML IV STA (15:22)
[2024-04-29] MEDS: PIPERACILLIN/TAZOBACTAM 4.5 GM/100 ML BAG IV SCH (15:22)
[2024-04-29] MEDS: POTASSIUM CHLORIDE CRTAB 20 MEQ TABCR PO STA (16:04)
[2024-04-29] MEDS ORDERED: diphenhydrAMINE Capsule 25 MG CAP PO PRN (16:36)
[2024-04-29] MEDS ORDERED: POLYETHYLENE (MIRALAX) 17 GM PACK PO PRN (16:36)
[2024-04-29] MEDS: ACETAMINOPHEN 500 MG TAB PO SCH (17:11)
[2024-04-29] MEDS: VANCOMYCIN HCL 125 MG/2.5ML SOLN PO SCH (17:21)
[2024-04-29] MEDS: CHERRY SYRUP 5 ML UDP PO SCH (17:21)
[2024-04-29] MEDS: LORazepam 0.5 MG TAB PO PRN (18:23)
[2024-04-29] MEDS: CEROVITE ADV FORMULA TAB PO SCH (20:17)
[2024-04-29] MEDS: KETOROLAC TROMETHAMINE 15 MG/ML VIAL IV PRN (20:17)
--- NOTE | 2024-04-29 21:56 | CT Scan Report ---
Exam(s): CT FACIAL With Contrast IV Amt: 95 ml optiray 320 EXAM: CT Maxillofacial With Intravenous Contrast CLINICAL HISTORY: Reason for exam: recent facial surgery, severe sepsis now. TECHNIQUE: Axial computed tomography images of the face with intravenous contrast. CTDI is 8 mGy and DLP is 144.68 mGy-cm. Automated exposure control was utilized for the study. A dose lowering technique was utilized adhering to the principles of ALARA. CONTRAST: Patient received 95 ml optiray 320 of IV contrast COMPARISON: No relevant prior studies available. FINDINGS: Bones/joints: No acute fracture. Soft tissues: Unremarkable. Orbits: Unremarkable. Sinuses: Unremarkable. Dental: Multiple carious and. Apical lucencies. Multiple missing teeth. No odontogenic abscess. IMPRESSION: No abscess. Electronically signed by: Rufino Weir MD 04/29/24 21:55 PM
[2024-04-30] MEDS: ACETAMINOPHEN 325 MG TAB PO PRN (02:47)
--- NOTE | 2024-04-30 08:02 | Hospitalist Progress Note ---
Date of Service April 30, 2024 Assessment & Plan (1) Severe sepsis: (2) UTI (urinary tract infection): (3) Diarrhea: (4) Abdominal pain: (5) Dental abscess: (6) Acute hypokalemia: (7) History of bipolar disorder: (8) Malnutrition: Plan This is a 23-year-old female with PMHx significant for recent dental abscess s/p I&D and tooth extraction by Dr. Espinosa on 04/10/2024, connective tissue disorder, POTS, h/o spinal cord stimulator removed in Sep 2023, complex regional pain syndrome who presents from home with ongoing low-grade fever and tachycardia over the past week and was found to meet severe sepsis criteria. Severe Sepsis Fever, tachycardia, tachypnea per ED admission Has also been having diarrhea with RUQ pain x 1 week, none since admission Appeared acutely ill and frail on admission WBC 11.96, lactate 5.1 -> 0.9 following 3L NSS in ED Procalcitonin normal UA with bladder wall thickening on CT abd/pelvis urine Cx pending Also in setting of recent dental abscess I&D s/p 2 abx CXR unremarkable CTA chest pending in setting of tachypnea and severe sepsis- unremarkable US abd without sonographic abnormality, no gallstones are seen Stool Cx and c diff testing pending- pt has not been able to give stool sample as no episodes of diarrhea since admission. CT abd/pelvis noting moderate fecal retention. Lyme, Babesia and anaplasma screens negative. DNA confirmatory tests pending. Blood cx x1 set pending Continue empiric IV Zosyn PO Vanco currently discontinued until stool sample for culture and c diff can be obtained. Per nursing pt has not had a BM since admission Pain control, IV fluids Continue to monitor Dental abscess H/o R palatal abscess I&D and tooth extraction by Dr. Espinosa on 04/10/2024 Completed 7d clinda and 7 d Augmentin course following CT Face noting "Multiple carious and. Apical lucencies. Multiple missing teeth. No odontogenic abscess." OMFS consulted, appreciate further recs Acute Toxic/Metabolic Encephalopathy Per nursing pt with hallucinations, AMS head CT ordered and pending-unremarkable VBG from admission reviewed, repeat pending Ammonia level wnl Tox screen noting pos Fentanyl screen, pt did receive a dose of fentanyl in the ED Delirium precautions. 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 Acute hypokalemia Replete as needed History of bipolar disorder Stable. Not currently on medication Malnutrition: BMI 17.8, appeared malnourished. Added IV thiamine, folic acid supplementation dietary consult DVT Ppx: Teds, early ambulation Code status: FULL PCP: Deon Dispo: Home once medically stable Admission and Anticipated Discharge Date Admission Date: April 29, 2024 Subjective pt was seen in the AM, sitting up in bed. Has been having hallucinations she says overnight. States she is SOB walking the halls. Notes she did not sleep much overnight. No episodes of diarrhea since admission. Review of Systems Review of Systems: All systems reviewed & are unremarkable except as noted in Subjective Physical Exam Physical Exam: General: Alert, oriented. No acute distress Skin: No noted rashes or bruises Psych: Appropriate mood and affect Neuro: No gross deficits HEENT: NC/AT Chest: Nontender to palpation. CV: RRR Resp: Breath sounds clear bilaterally, no increased effort of breathing. Abdomen: Soft, tender Extremities: No edema in lower extremities bilaterally. Results & Data Results & Data Vital Signs (Past 12 Hours) Vital Signs Temp Pulse Pulse Resp BP Pulse Ox O2 Del Method 04/30/24 07:56 36.9 C 101 H 17 126/86 99 Room Air 04/29/24 23:58 36.9 C 117 H 18 114/80 99 Room Air 04/29/24 22:12 92 H 04/29/24 20:23 36.8 C 112 H 18 107/68 100 Room Air Diagnostic Findings Chest X-Ray 04/29/24 08:35 SINGLE VIEW CHEST CLINICAL HISTORY: Sepsis FINDINGS: An AP, portable, upright chest radiograph is compared to study dated 12/13/2022. The cardiomediastinal silhouette is unremarkable. The lungs and pleural spaces are clear. No pneumothorax is seen. The bony thorax is grossly intact. An intrathecal lead has been removed as compared to previous. IMPRESSION: No active disease in the chest. ACT 112: Negative or not required by law. Electronically signed by: Enrrique Prieto M.D. 04/29/2024 9:09 AM Abdomen/Pelvis CT 04/29/24 08:58 CT SCAN OF THE ABDOMEN AND PELVIS WITH IV CONTRAST CLINICAL HISTORY: Right upper quadrant abdominal pain. Nausea and vomiting. Diarrhea. COMPARISON STUDY: Abdominal CT dated 06/06/2020. TECHNIQUE: Following the IV administration of 94 cc of Optiray 320, CT scan of the abdomen and pelvis is performed from the lung bases to the proximal femora. Images are reviewed in the axial, sagittal, and coronal planes. IV contrast was administered without complication. A dose lowering technique was utilized adhering to the principles of ALARA. CT DOSE: 388.9 mGy.cm FINDINGS: Lung bases: The heart is normal in size and without pericardial effusion. The lung bases are clear. Liver: The contrast-enhanced liver is normal in size, contour, and attenuation. Findings infiltration is seen adjacent to the falciform ligament. There is no intrahepatic biliary ductal dilatation. The hepatic veins and portal veins are patent. Gallbladder: Unremarkable. Spleen: Normal in size and attenuation. Pancreas: Unremarkable. Adrenal glands: Unremarkable. Kidneys: A horseshoe kidney is noted. The contrast enhanced renal moieties are normal in size and without hydronephrosis. The kidneys enhance symmetrically. Abdominal vasculature: The abdominal aorta is normal in course and caliber. Bowel: There is moderate colonic fecal retention. No bowel obstruction is seen. The appendix is 1 visualized and normal. Peritoneum: There is no intraperitoneal free air or abdominal ascites. Lymphadenopathy: None. Pelvic viscera: The bladder wall appears thickened. The uterus and adnexa are normal as visualized noting bilateral ovarian follicles. Skeletal structures: No lytic or blastic lesions are seen. IMPRESSION: 1. The bladder wall appears thickened. Correlate with clinical findings and urinalysis. 2. Normal appendix. 3. Horseshoe kidney is incidentally noted. 4. Additional findings as above. ACT 112: Negative or not required by law. Electronically signed by: Enrrique Prieto M.D. 04/29/2024 12:[address] 04/29/24 13:30 Exam(s): CT FACIAL With Contrast IV Amt: 95 ml optiray 320 EXAM: CT Maxillofacial With Intravenous Contrast CLINICAL HISTORY: Reason for exam: recent facial surgery, severe sepsis now. TECHNIQUE: Axial computed tomography images of the face with intravenous contrast. CTDI is 8 mGy and DLP is 144.68 mGy-cm. Automated exposure control was utilized for the study. A dose lowering technique was utilized adhering to the principles of ALARA. CONTRAST: Patient received 95 ml optiray 320 of IV contrast COMPARISON: No relevant prior studies available. FINDINGS: Bones/joints: No acute fracture. Soft tissues: Unremarkable. Orbits: Unremarkable. Sinuses: Unremarkable. Dental: Multiple carious and. Apical lucencies. Multiple missing teeth. No odontogenic abscess. IMPRESSION: No abscess. Electronically signed by: Rufino Weir MD 04/29/24 21:55 PM Abdomen Ultrasound 04/29/24 13:31 ULTRASOUND RIGHT UPPER QUADRANT ABDOMEN CLINICAL HISTORY: Right upper quadrant abdominal pain. COMPARISON STUDY: Abdominal CT dated 04/29/2024. TECHNIQUE: Real-time, grayscale, and color flow sonography of the right upper quadrant of the abdomen was performed. Images are reviewed in the transverse and longitudinal planes. FINDINGS: Liver: The liver is normal in size and echotexture. There is no intrahepatic biliary ductal dilatation. The main portal vein is patent. Gallbladder: The gallbladder is normal in appearance. No gallstones are identified. There is no gallbladder wall thickening or pericholecystic fluid. A sonographic Aguillon's sign is reportedly absent. The common bile duct measures up to 0.4 cm in diameter. Pancreas: Visualized portions of the pancreatic head and body are normal in appearance. The splenic vein is patent. Right kidney: Horseshoe kidney is incidentally noted. The right renal moiety is normal in size and echotexture. There is no hydronephrosis. Ascites: None. IMPRESSION: No acute sonographic abnormality is identified in the right upper quadrant. No gallstones are seen. ACT 112: Negative or not required by law. Electronically signed by: Enrrique Prieto M.D. 04/29/2024 2:58 PM
[2024-04-30 08:54] LABS: HCO3 VBG 25 mmol/L; Oxygen Saturation VBG 95.3 %; PCO2 VBG 38 mmHg (38-50); PO2 VBG 72 mmHg; pH VBG 7.43 (7.36-7.41)
[2024-04-30] MEDS: THIAMINE HCL 100 MG in SYRINGE 9 ML IV SCH (08:54)
[2024-04-30] MEDS: FAMOTIDINE 20 MG TAB PO SCH (08:54)
[2024-04-30] MEDS: PSYLLIUM or GUAR GUM FIBER 4GM PACKET PO SCH (08:54)
[2024-04-30] MEDS: FOLIC ACID 1 MG in SYRINGE 9.8 ML IV SCH (08:55)
[2024-04-30] MEDS: DOCUSATE SODIUM 100 MG CAP PO SCH (09:28)
[2024-04-30] MEDS: ONDANSETRON INJ 2 MG/ML 2 ML VIAL IV PRN (11:00)
[2024-04-30] MEDS: OPTIRAY 320 125ml IV ONE (11:13)
[2024-04-30 11:23] LABS: Basophils # (auto) 0.07 K/uL (0.00-0.20); Eosinophils # (auto) 0.31 K/uL (0.00-0.50); Eosinophils % (auto) 4.4 %; Hematocrit (blood only) 33.8 % (37.0-47.0); Hemoglobin 11.6 g/dl (12.0-16.0); Immature Granulocytes # (auto) 0.01 K/uL (0.01-0.20); Immature Granulocytes % (auto) 0.1 %; Lymphocytes # (auto) 2.87 K/uL (1.20-3.40); Lymphocytes % (auto) 40.5 %; Mean Corpuscular Hemoglobin 29.8 pg (25.0-34.0); Mean Corpuscular Hgb Conc 34.3 g/dL (32.0-36.0); Mean Corpuscular Volume 86.9 fL (80.0-100.0); Mean Platelet Volume 10.4 fL (9.4-12.4); Monocytes % (auto) 9.9 %; Neutrophils # (auto) 3.13 K/uL (1.40-6.50); Neutrophils % (auto) 44.1 %; Platelet Count 356 K/uL (130-400); RDW Coefficient of Variation 13.4 % (11.5-14.5); RDW Standard Deviation 42.3 fL (36.4-46.3); Red Blood Count 3.89 M/uL (4.20-5.40); White Blood Count 7.09 K/ul (4.8-10.8)
--- NOTE | 2024-04-30 11:35 | CT Scan Report ---
HEAD CT NONCONTRAST CT DOSE: HISTORY: AMS hallucinations TECHNIQUE: Multiaxial CT images of the head were performed without the use of intravenous contrast. A utomated exposure control was utilized for this study. A dose lowering technique was utilized adheri ng to the principles of ALARA. Comparison: Head CT 06/18/2022. Findings: The paranasal sinuses and mastoid air cells are clear. The calvarium and skull base are int act. The ventricles and sulci are within normal limits. There is no mass, hematoma, midline shift, or acute infarct. Impression: No acute intracranial abnormality. ACT 112: Negative or not required by law. Electronically signed by: Ismael Davies M.D. 04/30/2024 11:33 AM
[2024-04-30 11:37] LABS: Albumin Globulin Ratio 1.6 (0.9-2); Albumin Level 4.7 gm/dl (3.4-5.0); BUN Creatinine Ratio 6.6 (10-20); Bilirubin,Total 0.5 mg/dl (0.2-1.0); Calcium 9.4 mg/dl (8.6-10.3); Creatinine Clr Calc Pharmacy 109.8 ml/min; Est GFR (African American) 148.1 ml/min; Est GFR (Non-African American) 127.8 ml/min; Globulin 2.9 gm/dl (2.5-4.0); Magnesium 1.8 mg/dl (1.7-2.4); Phosphorus 4.1 mg/dl (2.5-4.9); Potassium 3.8 mmol/L (3.5-5.1); Total Protein 7.6 gm/dl (6.0-8.3)
--- NOTE | 2024-04-30 11:41 | CT Scan Report ---
CHEST CTA for PULMONARY ARTERIES CT DOSE: 881.07 mGy.cm HISTORY: Shortness of breath. TECHNIQUE: Multiaxial CT images of the chest were performed following the intravenous administration of contrast to evaluate the pulmonary arteries. 3D/Maximal intensity projection images were also obta ined. Sagittal and coronal reformations were also reviewed. A dose lowering technique was utilized a dhering to the principles of ALARA. COMPARISON STUDY: Chest CTA 01/12/2020. FINDINGS: There is a normal caliber thoracic aorta with no evidence for dissection. There is no evide nce for pulmonary embolus. No pleural effusions. No pneumothorax. The liver and spleen are unremarkab le. No mediastinal or hilar lymphadenopathy. The central airways are patent. Punctate calcified granu curtis within the left lung apex again noted. Stable 5 mm nodular density within the periphery of the l eft upper lobe likely representing scarring. No new focal lung consolidations to suggest a pneumonia. A 4 mm hypodense right thyroid nodule. This does not meet CT criteria for follow-up. IMPRESSION: No evidence for pulmonary embolus. ACT 112: Negative or not required by law. Electronically signed by: Ismael Daives M.D. 04/30/2024 11:39 AM
--- NOTE | 2024-04-30 17:29 | Oral/Maxillofacial Consult ---
Date of Consultation May 01, 2024 History of Present Illness Attending Physician: Rupali Chang MD History of Present Illness I saw Manda Wednesday morning and complete my consult On May 19 I saw Manda for her Post Op infection evaluation at 1 week The infected area has resolved very well. Swelling is gone and the tissue is back to normal in size and texture. No further drainage is noted. Infection has responded very well to the antibiotics, extractions and the I and D. I requested that the patient continue with massage, heat and wound care. At this time the area is well healed and responded well to treatment, no further treatment needed. Strongly suggested that she seeks general dental care Overall excellent response, no swelling, pain or sinus Reviewed the pathology-chronic inflammation as expected RTC as needed. 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 She reports that she could not breathe and also had palpitation with activity, both were better with rest. She reports fever since last 3 days, fever noted today morning was 100.5F at home, reports decreased appetite and multiple episodes of diarrhea since last 5 days and also reports 5 pounds of weight loss in this week. Reports nausea, denies vomiting, reports right-sided upper and lower abdominal pain since about 5 days. Denies pain or burning with passing urine. Patient reports he has been using Imodium to help with diarrhea. Reason for current admission: Severe sepsis likely secondary to UTI versus C. difficile, rule out dental infection as well. Patient denies /cough, sore throat. Of note, patient recently had dental procedure done in April 10 with with OMFS, was discharged on clindamycin for 7 days after which patient went to urgent care as she thought her infection is not better controlled and was discharged on additional 7 days of Augmentin. Her last dose of antibiotic was April 22. 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 Patient underwent right palatal abscess I&D and tooth extraction by Dr. Espinosa on 04/10/2024. Completed a 7-day course of clindamycin at that time. Then presented to [facility] for facial pain and there was concern for infection and was prescribed an additional 7-day course of Augmentin, which she completed on 04/22. After completing antibiotics, patient developed persistent diarrhea which she has had for the past week. 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 Also endorses low-grade fever, dull headache, tachycardiae made worse with any type of movement including ambulation to the bathroom. With any walking or exertion patient feels presyncopal. Has also developed right upper quadrant pain that is sharp and worse with exertion. Also having right lower quadrant discomfort. No recent known tick bites. Denies any illicit substances. No visual changes, chest pain, congestion or cough, nausea, vomiting, dysuria, hematuria or constipation. I evaluated Manda today in room 458. The oral surgical sites are now well healed w/o any evidence of recurrent of infection on the palate or lower right side. She still has a number of decayed teeth upper/lower left side but no evidence of acute findings, no pain, swelling, or dental abscess. These teeth will need to record in the future- I did suggest that once she is discharged that she must establish herself with a general dentist for treatment planing and routine dental care. Overall there is no evidence o believe that the oral cavity is the etiology to her current sepsis. New CT Maxillofacial With Intravenous Contrast CLINICAL HISTORY: Reason for exam: recent facial surgery, severe sepsis now. FINDINGS: Bones/joints: No acute fracture. Soft tissues: Unremarkable. Orbits: Unremarkable. Sinuses: Unremarkable. Dental: Multiple carious and. Apical lucencies. Multiple missing teeth. No odontogenic abscess. IMPRESSION: No abscess. Carious and fractured teeth left side-chronic in nature No active infection, extraction sites look to be healing well based on CT Overall there is no evidence o believe that the oral cavity is the etiology to her current sepsis. Allergies Allergy/AdvReac Type Severity Reaction Status Date / Time tramadol Allergy Intermediate Hives Verified 04/18/24 15:02 latex Allergy Mild IF ON SKIN Verified 04/18/24 15:02 TOO LONG--ITCHY RASH cefdinir Allergy Unknown Tachycardia Verified 04/18/24 15:02 and Rash Home Medications Medication Instructions Recorded Confirmed Type famotidine 20 mg tablet (Pepcid) 20 mg PO DAILY #30 tabs 04/11/24 04/29/24 Rx ibuprofen 600 mg tablet 600 mg PO Q8H PRN pain #30 tabs 04/11/24 04/29/24 Rx diphenhydramine HCl 25 mg capsule 25 mg PO HS PRN Allergy/Sleep 04/29/24 04/29/24 History (Benadryl) Patient History Medical History (Updated 04/29/24 @ 15:56 by Crystal Salinas PA-C) History of bipolar disorder Shoulder dislocation Horseshoe kidney PTSD (post-traumatic stress disorder) 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 Espinosa Status post total shoulder arthroplasty S/P insertion of spinal cord stimulator subsequently removed Status post bone graft Family History Other Bipolar disorder Colorectal cancer Social History Smoking Status: Never smoker Second Hand Exposure: No; Hx Alcohol Use: No Hx Substance Use: No Preferred Language: Kyrgyz Communication Ability: Effective Visual Impairment: No Limitations Transplant Surgeon Required: No Beliefs That Will Affect Care: None Current Living Situation: Spouse Feels Safe at Home: Yes Safety Concerns: Feels Safe At This Time Assistive Devices: None Results & Data Vital Signs (Past 12 Hours) Vital Signs Temp Pulse Pulse Resp BP Pulse Ox O2 Del Method 04/30/24 15:23 100 H 04/30/24 11:44 36.9 C 114 H 22 103/66 100 Room Air 04/30/24 07:56 36.9 C 101 H 17 126/86 99 Room Air 04/30/24 07:45 79 PG Care Time/CCT Total # of Minutes Spent Total Time Spent with Patient: Total time spent is greater than 50% in coordination of care (as documented) at patient's floor/unit and/or counseling patient: Coding Level of Care Code 86808 Inpt Consult Level 1
[2024-04-30] MEDS: FLUCONAZOLE 50 MG TAB PO ONE (22:58)
[2024-05-01] MEDS: LORATADINE 10 MG TAB PO ONE (02:37)
[2024-05-01 06:14] LABS: Basophils # (auto) 0.07 K/uL (0.00-0.20); Basophils % (auto) 0.9 %; Eosinophils # (auto) 0.61 K/uL (0.00-0.50); Eosinophils % (auto) 7.6 %; Hematocrit (blood only) 32.6 % (37.0-47.0); Hemoglobin 10.9 g/dl (12.0-16.0); Immature Granulocytes # (auto) 0.01 K/uL (0.01-0.20); Immature Granulocytes % (auto) 0.1 %; Lymphocytes % (auto) 37.5 %; Mean Corpuscular Hemoglobin 29.7 pg (25.0-34.0); Mean Corpuscular Hgb Conc 33.4 g/dL (32.0-36.0); Mean Corpuscular Volume 88.8 fL (80.0-100.0); Mean Platelet Volume 10.3 fL (9.4-12.4); Monocytes # (auto) 0.81 K/uL (0.11-0.59); Monocytes % (auto) 10.1 %; Neutrophils % (auto) 43.8 %; Platelet Count 311 K/uL (130-400); RDW Coefficient of Variation 13.2 % (11.5-14.5); RDW Standard Deviation 43.6 fL (36.4-46.3); Red Blood Count 3.67 M/uL (4.20-5.40)
[2024-05-01 06:30] LABS: Alanine Aminotransferase 8 U/L (7-52); Albumin Globulin Ratio 1.6 (0.9-2); Albumin Level 4.1 gm/dl (3.4-5.0); Alkaline Phosphatase 39 U/L (34-104); Anion Gap 4 (3-11); Aspartate Aminotransferase 11 U/L (13-39); BUN Creatinine Ratio 8.6 (10-20); Bilirubin,Total 0.4 mg/dl (0.2-1.0); Blood Urea Nitrogen 5 mg/dl (6-23); Calcium 8.7 mg/dl (8.6-10.3); Carbon Dioxide 27 mmol/L (21-32); Chloride 108 mmol/L (98-107); Est GFR (African American) > 150.0 ml/min; Est GFR (Non-African American) 129.9 ml/min; Globulin 2.5 gm/dl (2.5-4.0); Glucose 90 mg/dl (70-99(Fasting)); Magnesium 1.8 mg/dl (1.7-2.4); Phosphorus 4.1 mg/dl (2.5-4.9); Potassium 3.7 mmol/L (3.5-5.1); Sodium 139 mmol/L (136-145); Total Protein 6.6 gm/dl (6.0-8.3)
[2024-05-01] MEDS: POLYETHYLENE (MIRALAX) 17 GM PACK PO SCH (09:07)
--- NOTE | 2024-05-01 16:26 | Hospitalist Progress Note ---
Date of Service May 01, 2024 Assessment & Plan (1) Severe sepsis: (2) UTI (urinary tract infection): (3) Diarrhea: (4) Abdominal pain: (5) Dental abscess: (6) Acute hypokalemia: (7) History of bipolar disorder: (8) Malnutrition: Plan This is a 23-year-old female with PMHx significant for recent dental abscess s/p I&D and tooth extraction by Dr. Espinosa on 04/10/2024, connective tissue disorder, POTS, h/o spinal cord stimulator removed in Sep 2023, complex regional pain syndrome who presents from home with ongoing low-grade fever and tachycardia over the past week and was found to meet severe sepsis criteria. Severe Sepsis Fever, tachycardia, tachypnea per ED admission Has also been having diarrhea with RUQ pain x 1 week, none since admission Appeared acutely ill and frail on admission WBC 11.96, lactate 5.1 -> 0.9 following 3L NSS in ED Procalcitonin normal UA with bladder wall thickening on CT abd/pelvis urine Cx NGTD Also in setting of recent dental abscess I&D s/p 2 abx CXR unremarkable CTA chest pending in setting of tachypnea and severe sepsis- unremarkable US abd without sonographic abnormality, no gallstones are seen Stool Cx and c diff testing pending Lyme, Babesia and anaplasma screens negative. DNA confirmatory tests pending. Blood cx x1 set NGTD Fungal Cx added Continue empiric IV Zosyn PO Vanco currently discontinued until stool sample for culture and c diff can be obtained. Per nursing pt has not had a BM since admission Pain control, IV fluids Continue to monitor Vaginitis Pt notes vaginal inflammation and white discharge s/p Diflucan 150mg once Fungal Cx pending Continue to monitor in setting above Dental abscess H/o R palatal abscess I&D and tooth extraction by Dr. Espinosa on 04/10/2024 Completed 7d clinda and 7 d Augmentin course following CT Face noting "Multiple carious and. Apical lucencies. Multiple missing teeth. No odontogenic abscess." OMFS consulted, appreciate further recs Acute Toxic/Metabolic Encephalopathy Per nursing pt with hallucinations, AMS head CT ordered and pending-unremarkable VBG from admission reviewed, repeat pending Ammonia level wnl Tox screen noting pos Fentanyl screen, pt did receive a dose of fentanyl in the ED Delirium precautions. 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 Acute hypokalemia Replete as needed History of bipolar disorder Stable. Not currently on medication Malnutrition: BMI 17.8, appeared malnourished. Added IV thiamine, folic acid supplementation dietary consult DVT Ppx: Teds, early ambulation Code status: FULL PCP: Deon Dispo: Home once medically stable Admission and Anticipated Discharge Date Admission Date: April 29, 2024 Subjective pt was seen in the AM, sitting up in bed. Sister at bedside. having tremors and N/V Review of Systems 2 Review of Systems: All systems reviewed & are unremarkable except as noted in Subjective Physical Exam Physical Exam: General: Alert, oriented. No acute distress Skin: No noted rashes or bruises Psych: Appropriate mood and affect Neuro: No gross deficits HEENT: NC/AT Chest: Nontender to palpation. CV: RRR Resp: Breath sounds clear bilaterally, no increased effort of breathing. Abdomen: Soft, tender Extremities: No edema in lower extremities bilaterally. Results & Data Results & Data Vital Signs (Past 12 Hours) Vital Signs Temp Pulse Pulse Resp BP BP Pulse Ox 05/01/24 15:14 36.7 C 83 16 99/55 L 100 05/01/24 12:01 36.7 C 91 H 16 107/73 100 05/01/24 07:45 83 05/01/24 07:29 36.4 C L 75 17 111/74 100 O2 Del Method 05/01/24 15:14 Room Air 05/01/24 12:01 Room Air 05/01/24 07:45 05/01/24 07:29 Room Air
[2024-05-02 08:34] LABS: Basophils # (auto) 0.05 K/uL (0.00-0.20); Basophils % (auto) 0.9 %; Eosinophils # (auto) 0.56 K/uL (0.00-0.50); Hematocrit (blood only) 29.4 % (37.0-47.0); Hemoglobin 9.8 g/dl (12.0-16.0); Immature Granulocytes # (auto) 0.01 K/uL (0.01-0.20); Immature Granulocytes % (auto) 0.2 %; Lymphocytes # (auto) 2.61 K/uL (1.20-3.40); Lymphocytes % (auto) 46.4 %; Mean Corpuscular Hemoglobin 29.4 pg (25.0-34.0); Mean Corpuscular Hgb Conc 33.3 g/dL (32.0-36.0); Mean Corpuscular Volume 88.3 fL (80.0-100.0); Mean Platelet Volume 10.6 fL (9.4-12.4); Monocytes # (auto) 0.48 K/uL (0.11-0.59); Monocytes % (auto) 8.5 %; Neutrophils # (auto) 1.91 K/uL (1.40-6.50); Platelet Count 275 K/uL (130-400); RDW Coefficient of Variation 13.5 % (11.5-14.5); RDW Standard Deviation 43.7 fL (36.4-46.3); Red Blood Count 3.33 M/uL (4.20-5.40); White Blood Count 5.62 K/ul (4.8-10.8)
[2024-05-02 08:59] LABS: Alanine Aminotransferase 7 U/L (7-52); Albumin Globulin Ratio 1.7 (0.9-2); Albumin Level 3.5 gm/dl (3.4-5.0); Alkaline Phosphatase 34 U/L (34-104); Anion Gap 4 (3-11); Aspartate Aminotransferase 10 U/L (13-39); BUN Creatinine Ratio 10.7 (10-20); Bilirubin,Total 0.2 mg/dl (0.2-1.0); Blood Urea Nitrogen 6 mg/dl (6-23); Calcium 8.2 mg/dl (8.6-10.3); Carbon Dioxide 24 mmol/L (21-32); Chloride 111 mmol/L (98-107); Creatinine Clr Calc Pharmacy 120.4 ml/min; Est GFR (African American) > 150.0 ml/min; Est GFR (Non-African American) 131.4 ml/min; Globulin 2.1 gm/dl (2.5-4.0); Glucose 88 mg/dl (70-99(Fasting)); Magnesium 1.8 mg/dl (1.7-2.4); Phosphorus 3.7 mg/dl (2.5-4.9); Potassium 3.7 mmol/L (3.5-5.1); Sodium 139 mmol/L (136-145); Total Protein 5.6 gm/dl (6.0-8.3)
--- NOTE | 2024-05-02 13:58 | Hospitalist Progress Note ---
Date of Service May 02, 2024 Assessment & Plan (1) Severe sepsis: (2) UTI (urinary tract infection): (3) Diarrhea: (4) Abdominal pain: (5) Dental abscess: (6) Acute hypokalemia: (7) History of bipolar disorder: (8) Malnutrition: Plan This is a 23-year-old female with PMHx significant for recent dental abscess s/p I&D and tooth extraction by Dr. Espinosa on 04/10/2024, connective tissue disorder, POTS, h/o spinal cord stimulator removed in Sep 2023, complex regional pain syndrome who presents from home with ongoing low-grade fever and tachycardia over the past week and was found to meet severe sepsis criteria. Severe Sepsis Fever, tachycardia, tachypnea per ED admission Has also been having diarrhea with RUQ pain x 1 week, none since admission Appeared acutely ill and frail on admission WBC 11.96, lactate 5.1 -> 0.9 following 3L NSS in ED Procalcitonin normal UA with bladder wall thickening on CT abd/pelvis urine Cx NGTD Also in setting of recent dental abscess I&D s/p 2 abx CXR unremarkable CTA chest pending in setting of tachypnea and severe sepsis- unremarkable US abd without sonographic abnormality, no gallstones are seen Stool Cx and c diff testing remain uncollected, pending Lyme, Babesia and anaplasma screens negative. DNA confirmatory tests pending. Blood cx x1 set NGTD Fungal Cx added Continue empiric IV Zosyn PO Vanco currently discontinued until stool sample for culture and c diff can be obtained. Per nursing pt has not had a BM since admission Pain control, IV fluids Continue to monitor 05/02- ID consulted for further recs for discharge given uncertain source of infection and pt's previous use of clindamycin and Augmentin before admission with ?complications Vaginitis Pt notes vaginal inflammation and white discharge s/p Diflucan 150mg once, can re-treat with the same 72 hours later Fungal Cx pending Continue to monitor in setting above 05/02- started on vaginal miconazole as pt states she is having worsening thickened discharge and noticing bleeding when she wipes. Dental abscess H/o R palatal abscess I&D and tooth extraction by Dr. Espinosa on 04/10/2024 Completed 7d clinda and 7 d Augmentin course following CT Face noting "Multiple carious and. Apical lucencies. Multiple missing teeth. No odontogenic abscess." OMFS consulted, appreciate further recs Acute Toxic/Metabolic Encephalopathy Per nursing pt with hallucinations, AMS head CT ordered and pending-unremarkable VBG from admission reviewed, repeat pending Ammonia level wnl Tox screen noting pos Fentanyl screen, pt did receive a dose of fentanyl in the ED Delirium precautions. 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 Acute hypokalemia Replete as needed History of bipolar disorder Stable. Not currently on medication Malnutrition: BMI 17.8, appeared malnourished. Added IV thiamine, folic acid supplementation dietary consult DVT Ppx: Teds, early ambulation Code status: FULL PCP: Deon Dispo: Home once medically stable Admission and Anticipated Discharge Date Admission Date: April 29, 2024 Subjective Pt was seen resting in bed comfortably. Denied acute concerns states she is feeling better. Having episodes of hypotension. Also states she feels like vaginal infection is worsening. Review of Systems Review of Systems: All systems reviewed & are unremarkable except as noted in Subjective Physical Exam Physical Exam: General: Alert, oriented. No acute distress Skin: No noted rashes or bruises Psych: Appropriate mood and affect Neuro: No gross deficits HEENT: NC/AT Chest: Nontender to palpation. CV: RRR Resp: Breath sounds clear bilaterally, no increased effort of breathing. Abdomen: Soft, tender Extremities: No edema in lower extremities bilaterally. Results & Data Results & Data Vital Signs (Past 12 Hours) Vital Signs Temp Pulse Pulse Resp BP Pulse Ox O2 Del Method 05/02/24 12:15 36.7 C 74 18 98/65 L 100 Room Air 05/02/24 08:39 93/56 L 05/02/24 08:30 74 05/02/24 08:20 36.8 C 74 18 86/51 L 98 Room Air 05/02/24 02:52 36.5 C 70 16 88/54 L 98 Room Air
[2024-05-02] MEDS: MICONAZOLE NITRATE-7 (100 MG EA SUPP) BOX PV SCH (21:51)
[2024-05-03 06:32] LABS: Basophils # (auto) 0.05 K/uL (0.00-0.20); Basophils % (auto) 0.7 %; Eosinophils # (auto) 0.42 K/uL (0.00-0.50); Eosinophils % (auto) 5.7 %; Hematocrit (blood only) 33.1 % (37.0-47.0); Immature Granulocytes # (auto) 0.01 K/uL (0.01-0.20); Immature Granulocytes % (auto) 0.1 %; Immature Retic Fraction 10.1 % (2.3-15.9); Lymphocytes # (auto) 3.13 K/uL (1.20-3.40); Lymphocytes % (auto) 42.6 %; Mean Corpuscular Hemoglobin 29.7 pg (25.0-34.0); Mean Corpuscular Hgb Conc 33.2 g/dL (32.0-36.0); Mean Corpuscular Volume 89.5 fL (80.0-100.0); Mean Platelet Volume 10.7 fL (9.4-12.4); Monocytes # (auto) 0.64 K/uL (0.11-0.59); Monocytes % (auto) 8.7 %; Neutrophils % (auto) 42.2 %; Platelet Count 310 K/uL (130-400); RDW Coefficient of Variation 13.4 % (11.5-14.5); RDW Standard Deviation 44.3 fL (36.4-46.3); Reticulated Hemoglobin 34.1 pg (28.2-36.6); Reticulocyte % 1.95 % (0.50-2.00); White Blood Count 7.35 K/ul (4.8-10.8)
[2024-05-03 06:52] LABS: Albumin Globulin Ratio 1.6 (0.9-2); BUN Creatinine Ratio 6.2 (10-20); Bilirubin,Total 0.3 mg/dl (0.2-1.0); Calcium 8.8 mg/dl (8.6-10.3); Creatinine Clr Calc Pharmacy 103.9 ml/min; Est GFR (Non-African American) 125.1 ml/min; Globulin 2.5 gm/dl (2.5-4.0); Magnesium 1.7 mg/dl (1.7-2.4); Phosphorus 4.1 mg/dl (2.5-4.9); Potassium 3.4 mmol/L (3.5-5.1); Total Protein 6.5 gm/dl (6.0-8.3)
[2024-05-03 07:10] LABS: Ferritin 9.7 ng/ml (8-388)
[2024-05-03 07:58] LABS: Folate (Folic Acid),Ser orPlas > 22.30 ng/ml (>5.38)
[2024-05-03 07:59] LABS: Vitamin B12 382 pg/ml (180-914)
[2024-05-03 08:07] LABS: Fentanyl, Urine 1.4 ng/mL (<0.5); Norfentanyl, Urine 2.6 ng/mL (<0.5); medMATCH Fentanyl, Urine DNR; medMATCH Norfentanyl, Urine DNR
[2024-05-03] MEDS: POTASSIUM CHLORIDE CRTAB 20 MEQ TABCR PO STA (08:53)
[2024-05-03] MEDS: IRON SUCROSE 300 MG in SODIUM CHLORIDE 0.9% 250 ML IV ONE (08:55)
[2024-05-03 11:47] VITALS: RESP 19; TEMP 98.2; O2SAT 100
--- NOTE | 2024-05-03 15:16 | Infectious Disease Consult ---
Date of Service May 03, 2024 Telehealth Information I performed this visit using a real-time telehealth connection between my location and the patients location ([facility]). After connecting through interactive tele-video, patient was identified by name and date of and/or wristband check.Patient (or authorized healthcare personal banking representative) was informed that this was a telemedicine visit and it was being conducted confidentially over secure lines. My office door was closed and no o ne else was present in the room with me.Patient (or authorized healthcare personal banking representative) provided consent to proceed with the visit, expressed an understanding of privacy and security of the telemedicine visit, and gave permission to have a hospital personal banking representative in the room in order to assist with the visit and to conduct portions of the visit, as needed. I informed the patient (or authorized healthcare personal banking representative) that I reviewed their record and presented the opportunity for them to ask any questions regarding the visit today. The patient agreed to participate. Assessment & Plan (1) Fatigue: Plan: No signs of sepsis. WBC slightly high on admission, now normal. Hypotension, but this appears chronic and asymptomatic. qSOFA score on admission was low risk. No signs of persistent oral infection and remainder of ID work-up negative. Plan Recommend stopping pip-tazo. No further ID evaluation recommended at this time. Thank you for the consult referral. ID will sign off for now. Please call with any questions or should her clinical course change. History of Present Illness History of Present Illness Ms. Davidson is a 23yo female with a h/o possible CTD and POTS. She had an abscessed tooth removed earlier in the month and was on a course of clindamycin and Augmentin. This past weekend she had acute onset diarrhea and profound fatigue, followed by low-grade fevers. She presented to [facility] ED on 04/29 and was noted to have mild hypotension and a WBC of 11K. She was thought to have possible C diff, but her diarrhea resolved for the most part after admission. She was placed on pip-tazo for possible sepsis, but no clear infectious syndrome was identified. CT face and OMFS evaluation was negative. Today she reports feeling markedly better-- not back to baseline, but close. Still tired. No N/V or diarrhea today. No joint aches or rash. Allergies Allergy/AdvReac Type Severity Reaction Status Date / Time tramadol Allergy Intermediate Hives Verified 04/18/24 15:02 latex Allergy Mild IF ON SKIN Verified 04/18/24 15:02 TOO LONG--ITCHY RASH cefdinir Allergy Unknown Tachycardia Verified 04/18/24 15:02 and Rash Home Medications Medication Instructions Recorded Confirmed Type famotidine 20 mg tablet (Pepcid) 20 mg PO DAILY #30 tabs 04/11/24 04/29/24 Rx ibuprofen 600 mg tablet 600 mg PO Q8H PRN pain #30 tabs 04/11/24 04/29/24 Rx diphenhydramine HCl 25 mg capsule 25 mg PO HS PRN Allergy/Sleep 04/29/24 04/29/24 History (Benadryl) Patient History Medical History History of bipolar disorder Shoulder dislocation Horseshoe kidney PTSD (post-traumatic stress disorder) 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 Espinosa Status post total shoulder arthroplasty S/P insertion of spinal cord stimulator subsequently removed Status post bone graft Family History Other Bipolar disorder Colorectal cancer Social History Smoking Status: Never smoker Second Hand Exposure: No; Hx Alcohol Use: No Hx Substance Use: No Preferred Language: German Communication Ability: Effective Visual Impairment: No Limitations Booking Officer Required: No Beliefs That Will Affect Care: None Current Living Situation: Spouse Feels Safe at Home: Yes Safety Concerns: Feels Safe At This Time Assistive Devices: None Review of Systems Gen- Fatigue, fevers at home now resolved HEENT- JOHN at home, none since admission, no sore throat Resp- No cough or SOB Abd- No pain, N/V, or diarrhea today - No dysuria MSK- No join pains or swelling Skin- No rash Neuro- No focal deficit Physical Exam Gen- NAD, cooperative with exam HEENT- NC AT, normal neck ROM Resp- Normal respiration rate on room air MSK- Negative Ext- no edema Skin- No rash Neuro- Alert and oriented Results & Data Vital Signs (Past 12 Hours) Vital Signs Temp Pulse Resp BP BP Pulse Ox O2 Del Method 05/03/24 11:46 36.8 C 83 19 94/61 L 100 Room Air 05/03/24 07:56 36.7 C 61 18 93/55 L 98 Room Air Laboratory Results WBC 11.07 -> 7.35 Hgb 11 Platelets 310 Na 139 Creatinine 0.65 BUN 4 UA with 6-10 WBC, 0-2 RBC AST 11, ALT 8, total bili 0.3 Diagnostic Findings RVP negative Blood and urine cultures negative CXR normal
--- NOTE | 2024-05-03 15:42 | Electrocardiogram Report ---
Test Reason : Blood Pressure : */* mmHG Vent. Rate : 83 BPM Atrial Rate : 83 BPM P-R Int : 136 ms QRS Dur : 84 ms QT Int : 380 ms P-R-T Axes : 64 78 -56 degrees QTcB Int : 446 ms Normal sinus rhythm T wave abnormality, consider inferior ischemia T wave abnormality, consider anterolateral ischemia RSR' or QR pattern in V1 suggests right ventricular conduction delay Abnormal ECG When compared with ECG of 29-Apr-2024 08:29, Vent. rate has decreased by 64 bpm T wave inversion more evident in Anterior leads Confirmed by Myranda Gentile (1967) on 04/30/2024 7:05:39 PM Referred By: REFERRED SELF Confirmed By: Myranda Gentile
--- NOTE | 2024-05-03 15:42 | Electrocardiogram Report ---
Test Reason : Blood Pressure : */* mmHG Vent. Rate : 147 BPM Atrial Rate : 147 BPM P-R Int : 144 ms QRS Dur : 82 ms QT Int : 332 ms P-R-T Axes : 70 105 51 degrees QTcB Int : 519 ms Sinus tachycardia Rightward axis RSR' or QR pattern in V1 suggests right ventricular conduction delay Abnormal ECG When compared with ECG of 18-Jun-2022 16:19, T wave inversion less evident in Anterior leads Confirmed by Myranda Gentile (Mar) on 04/29/2024 2:22:27 PM Referred By: Confirmed By: Myranda Gentile
--- NOTE | 2024-05-03 15:45 | Discharge Summary ---
Discharge Summary Date of Service May 03, 2024 Principal Dx & Hospital Course #1 = Principal Diagnosis (1) Severe sepsis: (2) UTI (urinary tract infection): (3) Diarrhea: (4) Abdominal pain: (5) Dental abscess: (6) Acute hypokalemia: (7) History of bipolar disorder: (8) Malnutrition: Plan Ms. Davidson is a 23-year-old female with PMHx significant for recent dental abscess s/p I&D and tooth extraction by Dr. Espinosa on 04/10/2024, connective tissue disorder, POTS, h/o spinal cord stimulator removed in Sep 2023, complex regional pain syndrome who presents from home with ongoing low-grade fever and tachycardia over the past week and was found to meet severe sepsis criteria. However, no signs of infection identified and felt patient likely very dehydrated and fatigue. Dr Espinosa evaluated patient and reports that surgical site healing well. ID evaluated patient and notes no further need for antibiotics. On day of discharge, patient reports she is feeling well and eager to go home without any new concerns. Severe Sepsis ruled out Likely severe dehydration Fever, tachycardia, tachypnea per ED admission Has also been having diarrhea with RUQ pain x 1 week, none since admission Appeared acutely ill and frail on admission WBC 11.96, lactate 5.1 -> 0.9 following 3L NSS in ED Procalcitonin normal UA with bladder wall thickening on CT abd/pelvis urine Cx NGTD Also in setting of recent dental abscess I&D s/p 2 abx CXR unremarkable CTA chest pending in setting of tachypnea and severe sepsis- unremarkable US abd without sonographic abnormality, no gallstones are seen Stool Cx and c diff testing remain uncollected Lyme, Babesia and anaplasma screens negative. DNA confirmatory tests pending. Blood cx x1 set NGTD Fungal Cx NGTD No further abx Discharge Vaginitis Pt notes vaginal inflammation and white discharge s/p Diflucan 150mg once, can re-treat with the same 72 hours later Fungal Cx pending Continue to monitor in setting above resolved Dental abscess H/o R palatal abscess I&D and tooth extraction by Dr. Espinosa on 04/10/2024 Completed 7d clinda and 7 d Augmentin course following CT Face noting "Multiple carious and. Apical lucencies. Multiple missing teeth. No odontogenic abscess." OMFS: reports no signs of superimposed surgical infection Acute Toxic/Metabolic Encephalopathy *resolved Per nursing pt with hallucinations, AMS head CT ordered and pending-unremarkable VBG from admission reviewed, repeat pending Ammonia level wnl Tox screen noting pos Fentanyl screen, pt did receive a dose of fentanyl in the ED Delirium precautions. 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 resolved Acute hypokalemia Replete as needed History of bipolar disorder Stable. Not currently on medication Iron Deficiency anemia Malnutrition: BMI 17.8, appeared malnourished. Added IV thiamine, folic acid supplementation encourage robust diet s/p venofer PO replacement recommended Notes For Next Care Provider Medication Changes From Visit Iron supplement Multivitamin Admission HPI Per Admitting Provider This is a 23-year-old female with PMH of connective tissue disorder, POTS, h/o spinal cord stimulator removed in Sep 2023, complex regional pain syndrome and other medical problems below who presents from home with ongoing low-grade fever and tachycardia over the past week. Patient underwent right palatal abscess I&D and tooth extraction by Dr. Espinosa on 04/10/2024. Completed a 7-day course of clindamycin at that time. Then presented to [place] ED for facial pain and there was concern for infection and was prescribed an additional 7-day course of Augmentin, which she completed on 04/22. After completing antibiotics, patient developed persistent diarrhea which she has had for the past week. 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 Also endorses low-grade fever, dull headache, tachycardiae made worse with any type of movement including ambulation to the bathroom. With any walking or exertion patient feels presyncopal. Has also developed right upper quadrant pain that is sharp and worse with exertion. Also having right lower quadrant discomfort. Worked last night and when she woke up today felt extremely weak, tachycardic and like she is going to pass out with any type of movement. Also endorsed shortness of breath for the first time, prompting visit to ED for further evaluation. Patient denies any new medications or history of issues with thyroid, gallbladder or liver. No recent known tick bites. Denies any illicit substances. No visual changes, chest pain, congestion or cough, nausea, vomiting, dysuria, hematuria or constipation. Admission Exam Per Admitting Provider General Appearance: WD/WN, vitals as above, appears acutely ill, thin, anxious Head: normocephalic, atraumatic Eyes: normal inspection, PERRL, conjunctivae normal, anicteric sclerae ENT: external ear and nose normal, oropharynx normal Neck: normal visual inspection, trachea midline, no thyromegaly Respiratory: normal respiratory effort, lungs clear to auscultation, no wheeze, rales, rhonchi. No accessory muscle use Cardiovascular: tachycardic rate, regular rhythm, normal peripheral pulses, no BLE edema. Vessels: no JVD Chest: normal inspection of chest Abdomen/GI: normal bowel sounds, soft, +RUQ and RLQ pain, no hepatosplenomegaly Extremities/Musculoskeletal: no cyanosis or clubbing, extremities motor strength 5/5 Neurologic: PERRL, EOMI, accommodation nl, no face palsy, no dysarthria, CN's II-XI intact bilaterally and moves all extremities Psychiatric: A+Ox3, + anxious Skin: no rashes, normal color, warm/dry Discharge Exam Constitutional WD/WN, vitals as above Respiratory normal respiratory effort, lungs clear to auscultation Cardiovascular RRR, no murmur, no edema Updated Medication List Medication Instructions Recorded Confirmed Type famotidine 20 mg tablet (Pepcid) 20 mg PO DAILY #30 tabs 04/11/24 04/29/24 Rx ibuprofen 600 mg tablet 600 mg PO Q8H PRN pain #30 tabs 04/11/24 04/29/24 Rx diphenhydramine HCl 25 mg capsule 25 mg PO HS PRN Allergy/Sleep 04/29/24 04/29/24 History (Benadryl) ferrous sulfate 325 mg (65 mg 325 mg PO DAILY #30 tabs 05/03/24 Rx iron) tablet,delayed release ccabrhdb-[id number] acid 0.4 1 tab PO QAM 30 days #30 tabs 05/03/24 Rx mg-lycopene 300 mcg-lutein 250 mcg tablet ([employer]) Hospital Stay Data Consultations 04/29/24 12:30 ED Decision to Admit Stat 04/30/24 08:22 Consult Oromaxillofacial Surgery Routine 05/02/24 09:17 Consult Infectious Diseases Routine Diagnostic Imagining Performed 04/29/24 08:58 CT Abd and Pelvis [CT abd pelvis IV con only] Stat 04/29/24 13:30 CT face [CT facial bones w con] Routine 04/29/24 13:31 US abdomen limited Routine 04/30/24 08:19 CT angio chest PE protocol Urgent Head CT [CT head/brain wo con] Urgent Pending Results Patient Have Any Pending Studies at Discharge: No Discharge Instructions Given to Patient (Per Discharging Provider) You were admitted for concern of sepsis, or whole-body reaction to infection. It was noted that you were likely profoundly fatigue with no source of infection noted. Your surgery from Dr. Espinosa was healing well. You were noted to be low in iron. It is recommended you start an iron supplement daily in addition to a mu ltivitamin. Please follow up with your pcp. Total Time Total Time Spent Total Time Spent (In Minutes): 45
[2024-05-03 16:14] VITALS: BP 96/65; PULSE 71
[2024-05-04 12:17] LABS: Babesia microti DNA Not Detected (Not Detected)
== END 2024-05-03 19:36 | disposition home or self-care (01) | DRG 871 ==
LOC: ED 08:04 → 4W 13:54 → SUATTDRO 13:54 → 4W 16:18